=== PATIENT | female | born 1980 | race Caucasian/White ===

== ENCOUNTER → 2021-04-18 09:34 | Outpatient (CLI) | payer BC, SELFPAY ==
[2021-04-18 10:26] LABS: Basophils # 0.1 K/mm3 (0-0.2); Basophils % 0.7 % (0.1-2.0); Eosinophils # 0.3 K/mm3 (0.0-0.4); Hematocrit 42.3 % (37.0-47.0); Hemoglobin 14.1 g/dL (12.2-16.2); Lymphocytes # 2.8 K/mm3 (0.7-4.5); Lymphocytes % 20.2 % (10-50); Mean Corpuscular HGB Conc 33.4 g/dL (31.8-35.4); Mean Corpuscular Hemoglobin 30.3 pg (27.0-31.2); Mean Corpuscular Volume 90.8 fl (81-99); Mean Platelet Volume 7.5 fl (7.4-10.4); Monocytes # 0.6 K/mm3 (0.1-1.0); Monocytes % 4.2 % (1.7-9.3); Neutrophils # 10.1 K/mm3 (1.8-7.8); Neutrophils % 72.9 % (37.0-80.0); Platelet Count 339 K/mm3 (142-424); Red Blood Count 4.65 M/mm3 (4.20-5.40); Red Cell Distribution Width 13.2 % (11.5-17.5); White Blood Count 13.9 K/mm3 (4.8-10.8)
== END ==
PROVIDERS: PCP Family Medicine; Visit Provider Nurse Practitioner
DX: Z20.822 Contact with and (suspected) exposure to COVID-19 (principal)
CPT/HCPCS: 36415; 85025; C9803; U0003; U0005

== ENCOUNTER → 2021-05-01 11:38 | Outpatient (CLI) | payer BC, SELFPAY ==
[2021-05-01 13:14] LABS: Coronavirus 19 IgG Antibody Negative (Negative); Coronavirus 19 IgM Antibody Negative (Negative)
== END ==
PROVIDERS: PCP Family Medicine; Visit Provider Nurse Practitioner
DX: Z01.84 Encounter for antibody response examination (principal)
CPT/HCPCS: 36415; 86328

== ENCOUNTER → 2021-07-15 12:17 | Outpatient (CLI) | payer BC, SELFPAY ==
--- NOTE | 2021-07-15 12:24 | XR_ITS ---
FINAL REPORT TECHNIQUE: Single view chest CLINICAL HISTORY: 14+ days out from positive covid test. increased soa and coughing. FINDINGS: A single view of the chest was obtained. The heart and mediastinum are within normal limits. There are multifocal bilateral pulmonary opacities consistent with bilateral pneumonia. There is no pneumothorax. Osseous structures are unremarkable. IMPRESSION: Findings consistent with bilateral pneumonia, possibly viral pneumonia. Reviewed, Interpreted and Dictated by Ayaz Spencer III, MD Transcribed by Yulia Dykes Authenticated by Ayaz Spencer III, MD on 07/15/2021 01:54:10 PM [facility]
[2021-07-15 12:53] LABS: Basophils # 0.4 K/mm3 (0-0.2); Basophils % 3.4 % (0.1-2.0); Eosinophils % 0.1 % (0.1-12.0); Hematocrit 44.3 % (37.0-47.0); Hemoglobin 14.9 g/dL (12.2-16.2); Lymphocytes # 0.8 K/mm3 (0.7-4.5); Lymphocytes % 6.7 % (10-50); Mean Corpuscular HGB Conc 33.6 g/dL (31.8-35.4); Mean Corpuscular Hemoglobin 30.8 pg (27.0-31.2); Mean Corpuscular Volume 91.7 fl (81-99); Mean Platelet Volume 7.9 fl (7.4-10.4); Monocytes # 0.4 K/mm3 (0.1-1.0); Monocytes % 3.1 % (1.7-9.3); Neutrophils # 10.9 K/mm3 (1.8-7.8); Platelet Count 284 K/mm3 (142-424); Red Blood Count 4.83 M/mm3 (4.20-5.40); Red Cell Distribution Width 12.9 % (11.5-17.5); White Blood Count 12.1 K/mm3 (4.8-10.8)
[2021-07-15 13:11] LABS: MANUAL DIFFERENTIAL MANUAL DIFFERENTIAL (MANUAL DIFF)
[2021-07-15 15:08] LABS: Anisocytosis 1+; Lymphocytes % 10 % (10-50); Monocytes % 5 % (2-9); Neutrophils % 85 % (42-76); Platelet Estimate Normal; Total Cells Counted 100
== END ==
PROVIDERS: PCP Family Medicine; Visit Provider Nurse Practitioner
DX: U09.9 Post COVID-19 condition, unspecified (principal); R06.02 Shortness of breath; R05.9 Cough, unspecified
CPT/HCPCS: 36415; 71045; 85007; 85025

== ENCOUNTER → 2021-08-08 10:59 | Outpatient (CLI) | payer BC, SELFPAY ==
--- NOTE | 2021-08-08 11:12 | XR_ITS ---
FINAL REPORT CLINICAL HISTORY: prior covid, continued symptoms COMPARISON: 07/15/2021 FINDINGS: SINGLE VIEW CHEST The heart is normal in size. The mediastinum is unremarkable. The lungs are clear. There is no pneumothorax. IMPRESSION: No acute cardiopulmonary process. Reviewed, Interpreted and Dictated by Ayaz Spencer III, MD Transcribed by Brittany Bedolla Authenticated by Ayaz Spencer III, MD on 08/08/2021 12:45:29 PM [facility]
--- NOTE | 2021-08-08 11:23 | ECG_ITS ---
APPROVED REPORT Exam: Resting ECG HR:94 bpm ECG Measurements Heart Rate 94 AXES MD 156 P 45 QRSd 84 QRS -31 QT 338 T 38 QTc 390 Conclusion SINUS RHYTHM LEFT AXIS DEVIATION [QRS AXIS < -30] PATTERN CONSISTENT WITH PULMONARY DISEASE ABNORMAL ECG UNCONFIRMED REPORT Electronically signed by : [place] Poe MD 08/09/2021 16:02:38
== END ==
PROVIDERS: PCP Nurse Practitioner; Visit Provider Nurse Practitioner
DX: R00.0 Tachycardia, unspecified (principal); J12.82 Pneumonia due to coronavirus disease 2019
CPT/HCPCS: 71045; 93005

== ENCOUNTER → 2021-10-20 16:09 | Outpatient (CLI) | payer BC, SELFPAY ==
[2021-10-20 16:19] LABS: Adenovirus F 40/41, stool Not Detected (NotDetected); Astrovirus Not Detected (NotDetected); Campylobacter Not Detected (NotDetected); Clostridium Difficile A/B, PCR Not Detected (NotDetected); Cryptosporidium Not Detected (NotDetected); Cyclospora Cayetanesis Not Detected (NotDetected); Entamoeba histolytica Not Detected (NotDetected); Enteroaggregative E coli Not Detected (NotDetected); Enteropathogenic E coli Not Detected (NotDetected); Enterotoxigenic E coli Not Detected (NotDetected); Giardia lamblia Not Detected (NotDetected); Norovirus Not Detected (NotDetected); Plesimonas Shigalloides, PCR Not Detected (NotDetected); Rotavirus A Not Detected (NotDetected); Salmonella, PCR Not Detected (NotDetected); Sapovirus Not Detected (NotDetected); Shiga-like toxin E coli Not Detected (NotDetected); Shigella Enterovasive E coli Not Detected (NotDetected); Vibrio Cholerae Not Detected (NotDetected); Vibrio, PCR Not Detected (NotDetected); Yersinia Entercolitica, PCR Not Detected (NotDetected)
[2021-10-23 09:54] LABS: H. pylori Stool Ag, EIA Negative (Negative)
== END ==
PROVIDERS: Visit Provider Family Medicine
DX: R19.7 Diarrhea, unspecified (principal)
CPT/HCPCS: 87338; 87507

== ENCOUNTER → 2021-11-07 18:19 | Outpatient (CLI) | payer BC, SELFPAY ==
[2021-11-07 18:48] LABS: Adenovirus F 40/41, stool Not Detected (NotDetected); Astrovirus Not Detected (NotDetected); Campylobacter Not Detected (NotDetected); Cryptosporidium Not Detected (NotDetected); Cyclospora Cayetanesis Not Detected (NotDetected); Entamoeba histolytica Not Detected (NotDetected); Enteroaggregative E coli Not Detected (NotDetected); Enteropathogenic E coli Not Detected (NotDetected); Enterotoxigenic E coli Not Detected (NotDetected); Giardia lamblia Not Detected (NotDetected); Norovirus Not Detected (NotDetected); Plesimonas Shigalloides, PCR Not Detected (NotDetected); Rotavirus A Not Detected (NotDetected); Salmonella, PCR Not Detected (NotDetected); Sapovirus Not Detected (NotDetected); Shiga-like toxin E coli Not Detected (NotDetected); Shigella Enterovasive E coli Not Detected (NotDetected); Vibrio Cholerae Not Detected (NotDetected); Vibrio, PCR Not Detected (NotDetected); Yersinia Entercolitica, PCR Not Detected (NotDetected)
[2021-11-07 21:03] LABS: Clostridium Difficile A/B, PCR Detected (NotDetected)
== END ==
PROVIDERS: PCP Nurse Practitioner; Visit Provider Nurse Practitioner
DX: R19.7 Diarrhea, unspecified (principal); A04.72 Enterocolitis due to Clostridium difficile, not specified as recurrent
CPT/HCPCS: 87045; 87507

== ENCOUNTER → 2021-12-02 16:00 | Outpatient (CLI) | payer BC, SELFPAY ==
[2021-12-02 16:07] LABS: Adenovirus F 40/41, stool Not Detected (NotDetected); Astrovirus Not Detected (NotDetected); Campylobacter Not Detected (NotDetected); Cryptosporidium Not Detected (NotDetected); Cyclospora Cayetanesis Not Detected (NotDetected); Entamoeba histolytica Not Detected (NotDetected); Enteroaggregative E coli Not Detected (NotDetected); Enteropathogenic E coli Not Detected (NotDetected); Enterotoxigenic E coli Not Detected (NotDetected); Giardia lamblia Not Detected (NotDetected); Norovirus Not Detected (NotDetected); Plesimonas Shigalloides, PCR Not Detected (NotDetected); Rotavirus A Not Detected (NotDetected); Salmonella, PCR Not Detected (NotDetected); Sapovirus Not Detected (NotDetected); Shiga-like toxin E coli Not Detected (NotDetected); Shigella Enterovasive E coli Not Detected (NotDetected); Vibrio Cholerae Not Detected (NotDetected); Vibrio, PCR Not Detected (NotDetected); Yersinia Entercolitica, PCR Not Detected (NotDetected)
[2021-12-03 10:04] LABS: Clostridium Difficile A/B, PCR Detected (NotDetected)
== END ==
PROVIDERS: PCP Family Medicine; Visit Provider Nurse Practitioner
DX: A04.72 Enterocolitis due to Clostridium difficile, not specified as recurrent (principal)
CPT/HCPCS: 87506

== ENCOUNTER → 2022-05-05 12:05 | Outpatient (CLI) | payer BC, SELFPAY ==
[2022-05-05 19:40] LABS: Adenovirus,PCR Not Detected (NotDetected); Bordetella Pertussis Not Detected (NotDetected); Chlamydophila Pneumoniae, PCR Not Detected (NotDetected); Coronavirus 229E Not Detected (NotDetected); Coronavirus NL63 Not Detected (NotDetected); Coronavirus OC43 Not Detected (NotDetected); Coronovirus HKU1,PCR Not Detected (NotDetected); Human Metapneumovirus Not Detected (NotDetected); Influenza A, PCR Not Detected (NotDetected); Influenza AH1, 2009 Not Detected (NotDetected); Influenza AH1, PCR Not Detected (NotDetected); Influenza AH3,PCR Not Detected (NotDetected); Influenza B, PCR Not Detected (NotDetected); Mycoplasma Pneumoniae, PCR Not Detected (NotDetected); Parainfluenza 1, PCR Not Detected (NotDetected); Parainfluenza 2, PCR Not Detected (NotDetected); Parainfluenza 3, PCR Not Detected (NotDetected); Parainfluenza 4, PCR Not Detected (NotDetected); Respiratory Syncytial Virus Not Detected (NotDetected); Rhinovirus/Enterovirus Not Detected (NotDetected)
[2022-05-05 20:04] LABS: Basophils # 0.1 K/mm3 (0-0.2); Eosinophils # 0.4 K/mm3 (0.0-0.4); Eosinophils % 2.7 % (0.1-12.0); Hematocrit 41.2 % (37.0-47.0); Hemoglobin 13.6 g/dL (12.2-16.2); Lymphocytes # 1.1 K/mm3 (0.7-4.5); Lymphocytes % 8.3 % (10-50); Mean Corpuscular Hemoglobin 30.1 pg (27.0-31.2); Mean Corpuscular Volume 91.3 fl (81-99); Mean Platelet Volume 8.7 fl (7.4-10.4); Monocytes # 0.8 K/mm3 (0.1-1.0); Monocytes % 5.7 % (1.7-9.3); Neutrophils # 11.2 K/mm3 (1.8-7.8); Neutrophils % 82.3 % (37.0-80.0); Platelet Count 304 K/mm3 (142-424); Red Blood Count 4.51 M/mm3 (4.20-5.40); Red Cell Distribution Width 12.7 % (11.5-17.5); White Blood Count 13.6 K/mm3 (4.8-10.8)
[2022-05-06 16:08] LABS: Coronavirus 19, PCR Detected (NotDetected)
== END ==
PROVIDERS: PCP Nurse Practitioner; Visit Provider Nurse Practitioner
DX: J06.9 Acute upper respiratory infection, unspecified (principal); U07.1 COVID-19
CPT/HCPCS: 85025; 87581; 87632; 87798; C9803; U0003; U0005

== ENCOUNTER → 2022-08-22 22:25 | Outpatient (CLI) | payer OTHER, SELFPAY ==
[2022-08-22 18:15] LABS: Basophils # 0.1 K/mm3 (0-0.2); Basophils % 1.1 % (0.1-2.0); Eosinophils # 0.2 K/mm3 (0.0-0.4); Eosinophils % 2.6 % (0.1-12.0); Hematocrit 42.3 % (37.0-47.0); Hemoglobin 14.7 g/dL (12.2-16.2); Lymphocytes # 1.9 K/mm3 (0.7-4.5); Mean Corpuscular HGB Conc 34.8 g/dL (31.8-35.4); Mean Corpuscular Volume 89.1 fl (81-99); Mean Platelet Volume 8.9 fl (7.4-10.4); Monocytes # 0.5 K/mm3 (0.1-1.0); Monocytes % 6.3 % (1.7-9.3); Neutrophils # 4.8 K/mm3 (1.8-7.8); Platelet Count 323 K/mm3 (142-424); Red Blood Count 4.74 M/mm3 (4.20-5.40); Red Cell Distribution Width 12.8 % (11.5-17.5); White Blood Count 7.4 K/mm3 (4.8-10.8)
[2022-08-22 18:47] LABS: Alanine Aminotransferase 25 U/L (12-78); Albumin Level 4.3 g/dl (3.5-5.0); Albumin/Globulin Ratio 1.7 (1.1-1.8); Alkaline Phosphatase 81 U/L (38-126); Anion Gap 11.2 mEq/L (5-15); Aspartate Amino Transferase 29 U/L (14-36); Bilirubin,Total 0.6 mg/dl (0.2-1.3); Blood Urea Nitrogen 13 mg/dl (7-17); Calcium 8.7 mg/dl (8.4-10.2); Carbon Dioxide 25 mmol/L (22.0-30.0); Chloride 105 mmol/L (98-107); Chol/HDL Ratio 6.4 (1-3.5); Cholesterol 212 mg/dl (140-200); Estimated Glomerular Filt Rate 109 ml/min (>60); GFR (African American) 131 ML/MIN (>60); Globulin 2.6 g/dL (1.3-3.2); Glucose 82 mg/dl (74-100); HDL Cholesterol 33 mg/dl (40-60); Potassium 4.2 mmoL/L (3.5-5.1); Sodium 137 mmol/L (136-145); Total Protein,Serum 6.9 g/dl (6.3-8.2); Triglycerides 353 mg/dl (30-150); VLDL Cholesterol 71 mg/dL (0-40)
[2022-08-22 18:51] LABS: Hemoglobin A1C 5.1 % (4.0-6.0)
[2022-08-22 18:59] LABS: Direct LDL Cholesterol 122.97 mg/dL (100-129)
[2022-08-22 19:04] LABS: Microalbumin/Creatinine Ratio 4.4
[2022-08-22 19:05] LABS: 25-OH Vitamin D, Total 34.5 ng/mL (30-100)
[2022-08-22 19:18] LABS: Thyroid Stimulating Hormone 0.65 uIU/mL (0.465-4.68)
[2022-08-22 19:30] LABS: Creatinine,Urine Random 173 mg/dL (Not Estab.)
[2022-08-22 19:38] LABS: Vitamin B12 587 pg/mL (239-931)
== END ==
PROVIDERS: PCP Nurse Practitioner; Visit Provider Nurse Practitioner
DX: E28.2 Polycystic ovarian syndrome (principal); E78.5 Hyperlipidemia, unspecified; I10 Essential (primary) hypertension; Z13.1 Encounter for screening for diabetes mellitus; Z13.29 Encounter for screening for other suspected endocrine disorder; E66.9 Obesity, unspecified; Z68.27 Body mass index [BMI] 27.0-27.9, adult
CPT/HCPCS: 80053; 80061; 82043; 82306; 82570; 82607; 83036; 84443; 85025

== ENCOUNTER → 2022-09-11 18:29 | Outpatient (CLI) | payer OTHER, SELFPAY | PROVIDERS: PCP Nurse Practitioner; Visit Provider Nurse Practitioner | DX: R30.0 Dysuria (principal); B37.9 Candidiasis, unspecified | CPT/HCPCS: 87086; 87088 ==

== ENCOUNTER → 2022-11-14 23:06 | Outpatient (CLI) | payer OTHER, SELFPAY ==
[2022-11-14 17:39] LABS: Basophils # 0.1 K/mm3 (0-0.2); Basophils % 0.8 % (0.1-2.0); Eosinophils # 0.2 K/mm3 (0.0-0.4); Eosinophils % 2.4 % (0.1-12.0); Hematocrit 43.9 % (37.0-47.0); Hemoglobin 14.4 g/dL (12.2-16.2); Lymphocytes % 23.9 % (10-50); Mean Corpuscular HGB Conc 32.8 g/dL (31.8-35.4); Mean Corpuscular Hemoglobin 29.1 pg (27.0-31.2); Mean Corpuscular Volume 88.7 fl (81-99); Monocytes # 0.5 K/mm3 (0.1-1.0); Monocytes % 5.2 % (1.7-9.3); Neutrophils # 5.8 K/mm3 (1.8-7.8); Neutrophils % 67.7 % (37.0-80.0); Platelet Count 345 K/mm3 (142-424); Red Blood Count 4.95 M/mm3 (4.20-5.40); Red Cell Distribution Width 12.8 % (11.5-17.5); White Blood Count 8.6 K/mm3 (4.8-10.8)
[2022-11-14 17:45] LABS: Alanine Aminotransferase 35 U/L (12-78); Albumin Level 4.3 g/dl (3.5-5.0); Albumin/Globulin Ratio 1.6 (1.1-1.8); Alkaline Phosphatase 75 U/L (38-126); Anion Gap 15.6 mEq/L (5-15); Aspartate Amino Transferase 36 U/L (14-36); Bilirubin,Total 0.3 mg/dl (0.2-1.3); Blood Urea Nitrogen 11 mg/dl (7-17); Carbon Dioxide 27 mmol/L (22.0-30.0); Chloride 104 mmol/L (98-107); Chol/HDL Ratio 5.5 (1-3.5); Cholesterol 175 mg/dl (140-200); Estimated Glomerular Filt Rate 91 ml/min (>60); GFR (African American) 110 ML/MIN (>60); Globulin 2.7 g/dL (1.3-3.2); Glucose 89 mg/dl (74-100); HDL Cholesterol 32 mg/dl (40-60); Potassium 4.6 mmoL/L (3.5-5.1); Sodium 142 mmol/L (136-145); Triglycerides 394 mg/dl (30-150); VLDL Cholesterol 79 mg/dL (0-40)
[2022-11-14 17:52] LABS: Hemoglobin A1C 5.1 % (4.0-6.0)
[2022-11-14 17:56] LABS: Direct LDL Cholesterol 79.76 mg/dL (100-129)
[2022-11-14 18:03] LABS: 25-OH Vitamin D, Total 40.1 ng/mL (30-100)
[2022-11-14 18:34] LABS: Vitamin B12 580 pg/mL (239-931)
== END ==
PROVIDERS: PCP Nurse Practitioner; Visit Provider Nurse Practitioner
DX: I10 Essential (primary) hypertension (principal); E28.2 Polycystic ovarian syndrome; E66.9 Obesity, unspecified; E78.5 Hyperlipidemia, unspecified
CPT/HCPCS: 80053; 80061; 82306; 82607; 83036; 85025

== ENCOUNTER → 2023-02-11 23:57 | Outpatient (CLI) | payer OTHER, SELFPAY | PROVIDERS: PCP Nurse Practitioner; Visit Provider Nurse Practitioner | DX: R30.0 Dysuria (principal); B96.29 Other Escherichia coli [E. coli] as the cause of diseases classified elsewhere | CPT/HCPCS: 87086; 87088; 87186 ==

== ENCOUNTER 2024-01-13 10:37 | Outpatient (CLI) | payer OTHER, SELFPAY ==
[2024-01-13 19:09] LABS: Basophils # 0.1 K/mm3 (0-0.2); Basophils % 1.3 % (0.1-2.0); Eosinophils # 0.2 K/mm3 (0.0-0.4); Eosinophils % 2.1 % (0.1-12.0); Hemoglobin 14.1 g/dL (12.2-16.2); Lymphocytes # 2.5 K/mm3 (0.7-4.5); Lymphocytes % 26.7 % (10-50); Mean Corpuscular HGB Conc 34.3 g/dL (31.8-35.4); Mean Corpuscular Hemoglobin 31.1 pg (27.0-31.2); Mean Corpuscular Volume 90.8 fl (81-99); Mean Platelet Volume 8.4 fl (7.4-10.4); Monocytes # 0.5 K/mm3 (0.1-1.0); Neutrophils # 6.2 K/mm3 (1.8-7.8); Platelet Count 326 K/mm3 (142-424); Red Blood Count 4.52 M/mm3 (4.20-5.40); Red Cell Distribution Width 13.3 % (11.5-17.5); White Blood Count 9.5 K/mm3 (4.8-10.8)
[2024-01-13 19:32] LABS: Microalbumin < 6.000 mg/L (0-16.7)
[2024-01-13 19:42] LABS: Creatinine,Urine Random 93 mg/dL (Not Estab.)
[2024-01-13 19:43] LABS: Erythrocyte Sedimentation Rate 21 mm/hr (0-20)
[2024-01-13 19:59] LABS: Alanine Aminotransferase 33 U/L (12-78); Albumin Level 4.2 g/dl (3.5-5.0); Albumin/Globulin Ratio 1.3 (1.1-1.8); Alkaline Phosphatase 77 U/L (38-126); Aspartate Amino Transferase 36 U/L (14-36); Bilirubin,Total 0.7 mg/dl (0.2-1.3); Blood Urea Nitrogen 12 mg/dl (7-17); Calcium 9.1 mg/dl (8.4-10.2); Carbon Dioxide 26 mmol/L (22.0-30.0); Chloride 108 mmol/L (98-107); Chol/HDL Ratio 6.5 (1-3.5); Cholesterol 226 mg/dl (140-200); Estimated Glomerular Filt Rate 77 ml/min (>60); GFR (African American) 93 ML/MIN (>60); Globulin 3.2 g/dL (1.3-3.2); Glucose 89 mg/dl (74-100); HDL Cholesterol 35 mg/dl (40-60); Sodium 141 mmol/L (136-145); Total Protein,Serum 7.4 g/dl (6.3-8.2)
[2024-01-13 20:10] LABS: C-Reactive Protein 2.2 mg/L (0-4); Direct LDL Cholesterol 71.66 mg/dL (100-129)
[2024-01-13 20:20] LABS: 25-OH Vitamin D, Total 53.5 ng/mL (30-100)
[2024-01-13 20:29] LABS: Triglycerides 680 mg/dl (30-150)
[2024-01-13 20:31] LABS: Thyroid Stimulating Hormone 0.63 uIU/mL (0.465-4.68)
[2024-01-13 20:51] LABS: Vitamin B12 1000 pg/mL (239-931)
[2024-01-13 21:03] LABS: Hemoglobin A1C 5.3 % (4.0-6.0)
[2024-01-15 17:43] LABS: Anti-Centromere B Antibodies 0.4 AI (0.0-0.9); Anti-DNA (DS) Ab Qn <1 IU/mL (0-9); Anti-Jo-1 <0.2 AI (0.0-0.9); Anti-Smith Antibody <0.2 AI (0.0-0.9); Antichromatin Antibodies <0.2 AI (0.0-0.9); Antiscleroderma-70 Antibodies 0.2 AI (0.0-0.9); RNP Antibodies <0.2 AI (0.0-0.9); Sjogren's Anti-SS-A <0.2 AI (0.0-0.9); Sjogren's Anti-SS-B <0.2 AI (0.0-0.9)
== END 2024-01-13 23:59 | disposition home or self-care (01) ==
LOC: LAB.DROPOF 01-14 10:37
PROVIDERS: PCP Nurse Practitioner; Visit Provider Nurse Practitioner
DX: I10 Essential (primary) hypertension (principal); E78.5 Hyperlipidemia, unspecified; E66.9 Obesity, unspecified; E28.2 Polycystic ovarian syndrome; R53.83 Other fatigue; Z68.28 Body mass index [BMI] 28.0-28.9, adult
CPT/HCPCS: 80050; 80053; 80061; 82043; 82306; 82570; 82607; 83036; 84443; 85025; 85651; 86140; 86225; 86235

== ENCOUNTER 2024-07-27 14:25 | Outpatient (CLI) | payer OTHER, SELFPAY | END 2024-07-27 23:59 | disposition home or self-care (01) | LOC: LAB.DROPOF 07-28 12:32 | PROVIDERS: PCP Nurse Practitioner; Visit Provider Nurse Practitioner | DX: R30.0 Dysuria (principal) | CPT/HCPCS: 87086 ==

== ENCOUNTER → 2025-01-04 08:49 | Outpatient (CLI) | payer OTHER, SELFPAY ==
--- OUTSIDE RECORDS SUMMARY | 2024-11-21 09:50 | XMS_ITS | Encounter Summary ---
Author Organization [place] [address] Care Team Providers Care Game Developer Name Role Phone Zach Craft MD Primary Care Provider + [phone] Hosea Matos MD Unavailable [phone] Reason for Visit * Physical Therapy (Routine) - Authorized Specialty Diagnoses / Procedures Referred By Rocky ceja Referred To Contact Physical Therapy Diagnoses Urinary incontinence, unspecified type Rabia Pal MD [address] [place] [id number] Phone: tel: fax: [facility] Physical Therapy [place] [address] [address] [facility] [place] [address] Phone: tel: fax: Referral ID Status Reason Start Date Expiration Date V isits Requested Visits Authorized [id number] Authorized 10/05/2024 10/05/2025 1 60 Encounter Details Date Type Department Care Team (Latest Contact Info) Description 11/21/2024 9:50 AM EDT - 11/21/2024 11:59 PM EDT Hospital Encounter [facility] [place] [address] Alisha Delgado, PT Discharge Disposition: Home or Self Care Social History Tobacco Use Types Packs/Day Years Used Date Smoking Tobacco: Never Smokeless Tobacco: Never Alcohol Use Standard Drinks/Week Comments No 0 (1 standard drink = 0.6 oz pur e alcohol) Overall Financial Resource Strain (CARDIA) Answe r Date Recorded How hard is it for you to pa y for the very basics like food, housing, medical care, and heating? Not very hard 07/17/2021 Hunger Vital Sign Answer Date Recorded Within the past 12 months, y ou worried that your food would run out before you got the money to buy more. Never true 07/17/19 22 Within the past 12 months, t he food you bought just didn't last and you didn't have money to get more. Never true 07/17/2021 PRAPARE - Transportation Answer Date Re corded In the past 12 months, has l ack of transportation kept you from medical appointments or from getting medications? No 02/2022 In the past 12 months, has l ack of transportation kept you from meetings, work, or from getting things needed for daily living? No 07/17/2021 Sexually Active Control Partners Comments Yes Other-see comments Male Vasectomy Comments No Sex and Gender Information Value Date Recorded Sex Assigned at Not on file Legal Sex Female 2:54 PM EDT Gender Identity Not on file Sexual Orientation Not on file documented as of this encounter Functional Status * Is the person deaf or does he/she have serious difficulty hearing? Answer Date of Assessment Author No 07/18/2021 12:31 PM Tamia Clifton RN * Is the person blind or does he/she have serious difficulty seeing even when wearing glasses? Answer Date of Assessment Author No 07/18/2021 12:31 PM Tamia Clifton RN * Does this person have serious difficulty walking or climbing stairs? Answer Date of Assessment Author No 07/18/2021 12:31 PM Tamia Clifton RN * Does this person have difficulty dressing or bathing? Answer Date of Assessment Author No 07/18/2021 12:31 PM Tamia Clifton RN * Because of a physical, mental or emotional condition, does this person have difficulty doing errands alone such as visiting a doctor's office or shopping? Answer Date of Assessment Author No 07/18/2021 12:31 PM Tamia Clifton RN documented as of this encounter Mental Status * Because of a physical, mental or emotional condition, does this person have serious difficulty concentrating, remembering or making decisions? Answer Entry Date Author No 07/18/2021 12:31 PM Tamia Clifton RN documented in this encounter Medications at Time of Discharge amLODIPine (NORVASC) 5 mg Oral Tablet Take 1/2 Tablet by mouth nightly. 135 Tablet 1 09/17/2023 ascorbic acid (VITAMIN C ORAL) Take 500 mg by mouth daily. aspirin 81 mg tablet Take 81 mg by mouth daily. bisoprolol (ZEBETA) 5 mg Oral Tablet Take 1/2 Tablet by mouth once daily. 135 Tablet 1 09/17/2023 estradioL (ESTRACE) 0.01 % (0.1 mg/gram) Vagl Cream Place 1 g vaginally three times a week. 42.5 g 2 09/05/2024 finasteride (PROPECIA) 1 mg Oral TabletIndications:C ystic acne,Hirsutism Take 1 Tablet by mouth daily. 30 Tablet 11 05/17/2024 Lactobac no.41/Bifidobact no.7 (PROBIOTIC-10 ORAL) Take by mouth. metFORMIN (GLUCOPHAGE XR) 500 mg Oral ER 24 hr tabletIndications:P COS (polycystic ovarian syndrome) Take 1 tab in AM and 2 tabs in PM with food. 90 Tablet 5 04/04/2024 multivit-mins no.63/iron/folic (M-VIT ORAL) Take by mouth. oseltamivir (TAMIFLU) 75 mg Oral Capsule TAKE 1 CAPSULE BY MOUTH ONCE DAILY FOR 10 DAYS. 08/22/2024 predniSONE (DELTASONE) 10 mg Oral TabletIndications:R ight lateral epicondylitis Take two 10 mg tablets once a day, for 7 days 14 Tablet 10/19/2024 simvastatin (ZOCOR) 40 mg Oral Tablet Take 40 mg by mouth daily. losartan (COZAAR) 50 mg Oral Tablet TAKE ONE TABLET BY MOUTH ONCE DAILY 90 Tablet 1 11/27/2023 5 documented as of this encounter Discharge Disposition Disposition Code Departure Means Destination Home or Self Care documented in this encounter Progress Notes * Provider, Unknown - 11/21/2024 10:02 AM EDT * Alisha Delgado, PT - 11/21/2024 10:00 AM EDT Images from the original note were not included. Physical Therapy Pelvic Floor Evaluation Patient Name: Unique Avalos : 1980 Visit #: 1 Onset Date: 10/05/24-referral MD Diagnosis: Urinary incontinence, unspecified type Restrictions/Precautions: [place] Physician: Kae IBARRA Follow Up: none scheduled Evaluation Date: 11/21/2024 Reassessment Due: 30 days from 11/21/24 Primary Insurance: [employer] CHO[employer] PLUS Insurance Authorization: AMB REFERRAL TO PHYSICAL THERAPY Authorized (10/05/2024-10/05/2025) Visits Requested Visits Authorized Visits Completed Visits Scheduled 1 1 -- 1 Details Referral ID: [id number] Authorization Status Reason: -- Authorization Comments: -- Referred To: -- Referred By: Rabia Pal MD at [facility], [facility] Creation Date: 10/05/2024 Referral Reasons: -- Referral Order: AMB REFERRAL TO PHYSICAL THERAPY Time In/Out: [id number] Timed Treatment Minutes: Therapeutic activities 25 minutes Total Timed Code Treatment Minutes: 25 Untimed Treatment Minutes: PT Eval Total Treatment Minutes: 45 This evaluation to serve as D/C summary if the patient doesn't return for further treatment. Subjective Age: 44 y.o. Had a hysterectomy a couple years ago, started leaking after that, and it's progressed since then Has to wear panty liner daily, tried Always but didn't like how they felt No rhyme or reason with leakage Had CS deliveries Some drops after urinates, sometimes sitting at desk, sometimes with walking Not really prohibiting anything Started doing kegels and never helped Started vaginal estrogen for dryness and UTI like symptoms, symptoms have improved, immediate relief Has your problem been [x] getting worse [] stay the same [] getting better Have you ever had treatment for this problem [] no [x] yes (explain) Urinary frequency Daytime - all the time, I have a small bladder , tried to stretch bladder at a young age Nighttime - [] 0 [x] 1 [] 2 [] 3 [] 4 other: Bowel problems - on metformin Frequency of BM - [] daily [] qod [x] Specify: 2x/day Valsalva to defecate - [] yes [] No [] sometimes [place] Stool chart type: 1[] 2[] 3[] 4[] 5[x] 6[] 7[] Using a squatty potty: [] yes [] no Leakage frequency: Bladder: [] none [x] daily [] other (explain) - denies VALENTÍN or UUI, no rhyme or reason to leakage, will just be sitting and feel leakage, does have post void dribbling after she gets up from urinating, has worsened to the point of having to wear pads Bowel: [x] none [] yes, Frequency: Protection: Type: [] none [] urinary pads [x] menstrual pads [] Depends- panty liner # / day: [x] 1 [] 2 [] 3 [] 4 [] 5 Fluid intake - [x] water - tries to drink 80oz at work, not as much at home [x] soda ( [] regular [x] diet) sprite or coke zero daily [x] coffee ( [x] regular [] decaf) [] additives -1 cup, FF milk, creamer [] tea ( [] regular [] decaf) [] Other (explain) Caffeine use - [x] see above; explain: Hx UTI - [] no [x] yes , was told to cut out caffeine in the past due to UTI's, also did bladder stretch when she was little due to inc'd frequency and UTI's OB History 2 Para 2 Term 1 AB Living 1 SAB IAB Ectopic Multiple Live Births # of Pregnancies:2 # of Deliveries:2 [x] [] Vaginal Pelvic History: Regular menstrual cycles - [] yes [] no (explain) ([] menopause [x] Hysterectomy [] ) UTD on pelvic screening / PAP test: [x] yes [] no Pain: Pain with tampon use - [] yes [] no [x] NA Pain with intercourse - [] yes [x] no [] NA Pain level: denies Patient Goals: to stop leakage Current Bladder treatment (meds): [x] Vaginal estrogen Current Bowel treatment (supplements / meds): [x] probiotic Social/Function: 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, 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, 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, 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 difficile diarrhea COVID-19 long hauler 06/2021 Encounter for blood transfusion 7 years ago with Factor V Leiden mutation dx 2010 Hyperlipidemia Hypertension Past Surgical History: Procedure Laterality Date SECTION x2 CHOLECYSTECTOMY ENDOMETRIAL ABLATION N/A 03/14/2016 DILATION AND CURETTAGE HYSTEROSCOPY WITH MYOSURE ENDOMETRIAL ABLATION WITH NOVASURE ; Surgeon: Terri Thompson MD; Location: ED MAIN OR; Service: Gynecology HYSTERECTOMY 04/16/22 HYSTERECTOMY, TOTAL N/A 04/18/2022 DAVINCI ROBOTIC TOTAL HYSTERECTOMY WITH BILATERAL SALPINGECTOMY; Surgeon: Rabia Pal MD; Location: ED MAIN OR; Service: Robotics HYSTEROSCOPY N/A 03/14/2016 Surgeon: Terri Thompson MD; Location: ED MAIN OR; Service: Gynecology TONSILLECTOMY (Not in a hospital admission) Current Outpatient Medications: amLODIPine (NORVASC) 5 mg Oral Tablet, Take 1/2 Tablet by mouth nightly., Disp: 135 Tablet, Rfl: 1 ascorbic acid (VITAMIN C ORAL), Take 500 mg by mouth daily., Disp: , Rfl: aspirin 81 mg tablet, Take 81 mg by mouth daily. , Disp: , Rfl: bisoprolol (ZEBETA) 5 mg Oral Tablet, Take 1/2 Tablet by mouth once daily., Disp: 135 Tablet, Rfl: 1 estradioL (ESTRACE) 0.01 % (0.1 mg/gram) Vagl Cream, Place 1 g vaginally three times a week., Disp:42.5 g, Rfl: 2 finasteride (PROPECIA) 1 mg Oral Tablet, Take 1 Tablet by mouth daily., Disp: 30 Tablet, Rfl: 11 Lactobac no.41/Bifidobact no.7 (PROBIOTIC-10 ORAL), Take by mouth., Disp: , Rfl: losartan (COZAAR) 50 mg Oral Tablet, TAKE ONE TABLET BY MOUTH ONCE DAILY, Disp: 90 Tablet, Rfl: 1 metFORMIN (GLUCOPHAGE XR) 500 mg Oral ER 24 hr tablet, Take 1 tab in AM and 2 tabs in PM with food., Disp: 90 Tablet, Rfl: 5 multivit-mins no.63/iron/folic (M-VIT ORAL), Take by mouth., Disp: , Rfl: oseltamivir (TAMIFLU) 75 mg Oral Capsule, TAKE 1 CAPSULE BY MOUTH ONCE DAILY FOR 10 DAYS., Disp: , Rfl: predniSONE (DELTASONE) 10 mg Oral Tablet, Take two 10 mg tablets once a day, for 7 days, Disp: 14 Tablet, Rfl: 0 simvastatin (ZOCOR) 40 mg Oral Tablet, Take 40 mg by mouth daily., Disp: , Rfl: No Known Allergies Objective FOTO Eval score 11/21/24 Predicted Score Updated Score Updated Score Updated Score 48 58 Activities walking 6 x 2.sitting 6 x 3.squatting 6 x Observation: Posture: WNL; no significant deviations noted Gait Analysis: within normal limits without assistive device Lumbar Mobility: WNL for rx Mentation: alert, oriented, follows directions appropriately Hx abdominal surgery? [] No [x] Yes-CS x 2, hysterectomy 2021, cholecystectomy Scar Location: multiple lap incisions Scar mobility: some dec'd mobility on 2 lap incisions Diastasis Recti (in finger width): Above: 0 At umbilicus: 0 Below: 0 Neuro: [x] NT Sensation (B) UEs: [] intact Sensation (B) LEs: [] intact Reflexes: Anal: [] present [] absent Cough: [] present [] absent Pelvic Floor Exam Pt was offered a clay pigeon loader during internal exam and declined. External: Skin Condition: [x] intact [] hemorrhoids [] cysts [] swelling [] varicosities [] lesions [] atrophy [] other (explain): Palpation: [x] no tenderness to palpation noted Tenderness to palpation noted at [] superficial transverse perineal ([] Right [] Left [] Bilat) [] ischiocavernosus ([] Right [] Left [] Bilat) [] bulbocavernosus ([] Right [] Left [] Bilat) [] perineum [] other (explain) Tone: [x] normal [] hypotonic [] hypertonic Perineal Body Mobility: Voluntary Contract [x] present [] absent Voluntary Relax [x] present [] absent Involuntary Contract (Cough) [x] present [] absent Involuntary Relax [x] present [] absent Perineal Body Descent: Rest [] Flattened [x] Supported Bear Down Strongly [] Present (Cauda) [x] Absent (=normal / cephalad) Internal: Sensation: [x] intact [] diminished [] absent Palpation: [x] no tenderness to palpation noted [] tenderness / pain to palpation noted at : [] LA ([] Right [] Left [] Bilat) [] ATLA ([] Right [] Left [] Bilat) [] OI ([] Right [] Left [] Bilat) [] post introitus [] other (explain) Vaginal Vault size: [x] WNL [] Increased [] Decreased P E R F E C (TA) T (cough) 5/5 >5 Sec. >5 10 [x] P [] A [] NT [x] P [] A [] NT [x] P [] A [] NT Pelvic Organ Prolapse Grade Anterior/Cystocele [x]0 []1 []2 []3 []4 NT [] Posterior/Rectocele [x]0 []1 []2 []3 []4 NT [] Apical/Vaginal [x]0 []1 []2 []3 []4 NT [] Therapeutic Activity Bladder Diary: [x] patient educated on importance of filling out bladder diary at home, complete with fluid intake, voids, and leakage when applicable. Voiding: [x] patient educated on normal voiding and urination cycle and the physiology of bowel and bladder control muscles and pelvic floor muscles. The patient was educated on bladder dysfunction as well. The patient was also educated on prolapse and its affect on urination. [] Pt instructed on bulge / double void technique after voiding to facilitate PFM elongation and complete bowel / bladder emptying. Dietary: [x] Patient educated on avoiding the 4 Cs and other bladder irritants to reduce bladder irritation and leakage. [x] Patient educated on proper water intake to promote normal bowel / bladder function [] Patient educated on importance of completing water tracker with goal oz water daily Bowel: [] Patient educated on completing daily bowel diary until next session - provided handout. [] Discussed rationale for daily fiber and / or miralax to improve the consistency and frequency ofBMs. [] Reviewed and demonstrated proper positioning for defecation to reduce PFM stress, including use of foot stool / squatty potty. Other: [] Patient instructed to use ample amounts of water based lubricant during intercourse to reduce pain and irritation (sample provided). [] Reviewed strategies to protect the pelvic floor from strain / prolapse. [] Reviewed use of kegel weights for home and provided information to order [] During internal exam, pt was provided with verbal as well as manual cues to facilitate PFM contraction (+/- coordination with cough) and PFM elongation Therapeutic exercise (TE): PF strengthening TE: [] Short-hold (1 sec): 10 Times, 3-5 times per day [] Long-hold (5 sec): 10 Times, 3-5 times per day [] Kegel + cough: 10 times, 3-5 times per day [] Diaphragmatic breathing Patient/Family Instructed on: [x] see handout [] HEP [x] refer to above information Patient's Response to teaching: Verbalized understanding, returned demo Assessment: Impression: Unique Avalos presents with worsening UI since hysterectomy in 2021. Pt denies VALENTÍN or UUI and reports that she will just have leakage at random times. Pt with hx CS x 2 and hysterectomy. Pt with inc'd daytime urinary frequency and nocturia x 1. Pt does report being told that her bladder was small as a child and underwent a bladder stretching procedure. Pt with vaginal dryness and UTI symptoms (with negative cultures) that have significantly improved since starting vaginal estrogen. Pt with good water intake but does drink moderate amount of bladder irritants. Pt with good PFM strength, endurance and coordination. Anticipate that pt will do well with PFPT focusing on improving overall bowel and bladder habits and general education regarding posture, diaphragmatic breathing,pelvic floor/prolapse protection strategies and body mechanics. Goals Rehab potential: [x] good [] fair [] poor [] guarded Short Term Goals: (set for 4 weeks) Update/Status Pt will demo independence with double void techniques in order to improve post void dribbling [x] Unmet [] Progressing [] Met Pt will demo exhale and kegel during all transitional movements in order to manage pressure and reduce leakage with squatting [x] Unmet [] Progressing [] Met Pt will understand the effects of bladder irritants and avoid as able to reduce urinary leakage [x]Unmet [] Progressing [] Met Global Lead Goals: (set for 8 weeks) Update/Status Pt will report at least 50% improvement in overall symptoms resulting in improved quality of life [x] Unmet [] Progressing [] Met Pt will utilize urgency control exercises daily to normalize bladder control and return to normal voiding intervals of every 2-4 hours [x] Unmet [] Progressing [] Met PSFS will improve by at least 2 in one domain representing an increase in function [x] Unmet [] Progressing [] Met Patient will be independent with HEP upon D/C in order to promote long-term health and reduce risk for injury. [x] Unmet [] Progressing [] Met Plan [] Continue per plan of care [] Alter current plan (see comments) [x] Plan of care initiated [] Hold pending MD visit [] Discharge Comment: Patient is recommended to be seen up to 1 time per week for 8 weeks. Treatments may consist of Therapeutic exercise 27873, Neuromuscular re-education 57539, Manual soft tissue and/or joint mobilization 95477, Patient education, Electrical stimulation (unattended) 90708, and Therapeutic activity 08609. Patient present with co-morbidities of incontinence and musculoskeletal conditions and personal factors of Age that may impact patient/family's ability to Work, Play sports, and Attend social activities. During today's evaluation, he/she presented with problem areas in musculoskeletal system, activity limitations, and participation restriction that are impacting functional activities and participation (see objective measures for further detail). Due to indicated course of physical therapy, the patient's presentation is evolving at this time. This patient presented today with moderate complexity. Reference Chart: Co-morbidities & Personal Factors Body system elements Presentation Clinical Decision Making Low Evaluation 0 1-2 Stable / Predictable Low Moderate Evaluation 1-2 3 or more Evolving/ Changing Moderate High Evaluation 3 or more 4 or more Unstable/ Unpredictable High Signature: Alisha Delgado, PT Date: 11/21/2024 documented in this encounter Plan of Treatment Upcoming Encounters Date Type Department Care Team (Late st Contact Info) Description 01/17/2025 8:15 AM EDT [facility] [address] [facility] [address] [place] [address] Shi Small, PT [address] [place], [place] [id number] Scheduled Referrals Name Type Priority Associated Diagnoses Orde r Schedule AMB REFERRAL TO PHYSICAL THERAPY Outpatient Referral Routine Urinary incontinence, unspecified type Ordered: 10/05/2024 documented as of this encounter Visit Diagnoses Not on filedocumented in this encounter Care Teams Game Developer Relationship Specialty Start Date End Date Zach Craft MD [facility] [place] [id number] PCP - General Family Medicine 03/03/16 Hosea Matos MD [address] [place] [address] Physician Otolaryngology 09/30/24 documented as of this encounter
--- OUTSIDE RECORDS SUMMARY | 2024-11-22 10:30 | XMS_ITS | Encounter Summary ---
Author Organization [facility] Address [address] [place] [address] Care Team Providers Care Assistant Quality Manager Name Role Phone Zach Craft MD Primary Care Provider [phone] Hosea Matos MD Unavailable [phone] Reason for Referral * In Office Procedure (Routine) - AFF Authorization Not Needed Specialty Diagnoses / Procedures Referred By Rocky ceja Referred To Contact Orthopedic Surgery Diagnoses Right lateral epicondylitis Right elbow pain Procedures [facility] MEDICATION/PROCEDURE AUTH Barrett Dee DO [address] [place] [address] Phone: tel: fax: [facility] [address] [place] [address] Phone: tel: fax: Referral ID Status Reason Start Date Expiration Date Visits Requested Visits Authorized [id number] AFF Authorization Not Needed 11/22/2024 11/22/2025 1 1 Reason for Visit * Reason Comments Follow-up Encounter Details Date Type Department Care Team (Latest Contact Info) Description 11/22/2024 10:30 AM EDT Office Visit [facility] [address] [place] [address] Barrett Dee DO [address] [place] [address] Right lateral epicondylitis (Primary Dx); Right elbow pain Social History Tobacco Use Types Packs/Day Years [...] Tamia Clifton RN documented in this encounter Progress Notes * Barrett Dee DO - 11/22/2024 10:30 AM EDT Images from the original note were not included. PATIENT NAME: Unique Avalos DATE OF (age): 44 y.o. PHYSICIAN: Barrett Dee DO Date of Visit: 11/22/2024 Chief Complaint: Chief Complaint Patient presents with ??? Right Elbow - Follow-up History: This is a 44 y.o. year old female with a PMH significant for hypertension, hyperlipidemia,factor V Leiden deficiency and PCOS who presents for follow-up evaluation of right elbow pain. Symptom onset several months. She denies any direct fall or trauma but reported a popping sensation whenshe was throwing a ball. The patient was last seen on 10/25/2024. A counterforce brace and home exercises were recommended. Today she reports minimal to no improvement. She reports persistent right lateral elbow pain, pain with simple activities such as lifting up a coffee cup. She denies any new falls or trauma. She presents to discuss additional diagnostic treatment options. Past Medical History: Reviewed registration form and medical history. Past Surgical History: Reviewed registration form and medical history. Family History: Reviewed registration form and medical history. Social History: Reviewed registration form and medical history. Review of Systems: Reviewed registration form and medical history. Physical Examination: VITAL SIGNS: Height Weight GENERAL: Well appearing. No acute distress. Appears stated age. ORIENTATION: Awake. Alert. Oriented. HEENT: Normocephalic, atraumatic. Extraoccular muscles intact. Nares patent. RESPIRATORY: Non-labored breathing. Speaks comfortably in full sentences. CARDIAC: Warm and well-perfused. No obvious peripheral edema. SKIN: No obvious lesions in exposed areas. NEUROLOGIC: Light touch sensation is intact and symmetric in the bilateral upper and lower extremities. Strength is 5/5 in the bilateral upper and lower extremities. No ankle clonus is noted bilaterally. PSYCHIATRIC: Normal mood and affect. Cooperative. GAIT: Grossly normal. LEFT ELBOW: Full range of motion with flexion, extension, pronation and supination. No warmth, erythema, edema or effusion. No pain with palpation of the lateral epicondyle, medial epicondyle, olecranon or radial head. Cozen sign is negative. No pain with resisted finger extension. No pain overlying the UCL. Tinel's negative at the ulnar nerve. Strength is 5/5. Sensation is intact. RIGHT ELBOW: Full range of motion with flexion, extension, pronation and supination. No warmth, erythema, edema or effusion. No pain with palpation of the medial epicondyle, olecranon or radial head.Cozen sign is positive. Pain with resisted finger extension. No pain overlying the UCL. Tinel's negative at the ulnar nerve. Strength is 5/5. Sensation is intact. Tender to palpation at the common extensor tendon at the lateral epicondyle. ADDITIONAL WORKUP / IMAGING The following imaging and/or labs were personally read by myself and discussed in detail with the patient today. Right elbow x-ray, 3 views, 10/19/2024: Preserved articulation and alignment of the humeral ulnar joint, radiocapitellar joint and proximal radioulnar joint. No obvious acute osseous abnormality is identified. Limited ultrasound evaluation, right elbow, 10/25/2024: The common extensor tendon is visualized, mild loss of the fibular echotexture suggestive of tendinopathy. There is a small area of hypoechogenicity suggestive of a nonretracted intrasubstance tear, no large retracted tear noted. Small hyperechoic area suggestive of small area of intratendinous calcification. ASSESSMENT: Lateral epicondylitis, right-persistent Right elbow common extensor tendinopathy with possible intrasubstance, nonretracted tear PLAN: I discussed the case with the patient in the office today. I discussed treatment options. I did my best to answer all questions. The patient was in agreement with the treatment plan. The patient returns to follow-up her right elbow pain as above. She has made minimal progress in the prior visit. Imaging as above is again reviewed. Ordering an ultrasound-guided percutaneous needle tenotomy with platelet rich plasma injection to the right elbow common extensor tendon at the lateral condyle I discussed risks, benefits and alternative treatment options, the patient expressed understanding and desire to proceed. Continue elbow counterforce brace as needed. Continue home exercises in the prior visit. The patient prefers home exercises as opposed to formal in person physical therapy. Discontinue meloxicam due to lack of clinical improvement. Hold all NSAIDs 2 weeks prior to 8 weeks post procedurally. Tylenol over the counter, as needed, as directed on the bottle, not to exceed 3000 mg per day. Ice 20 minutes on 60 minutes off as needed. In terms of next steps would consider: Advanced imaging right elbow Return to clinic once scheduled for her ultrasound-guided percutaneous needle tenotomy with platelet plasma injection to the right elbow common extensor tendon at the lateral epicondyle or sooner if symptoms worsen. The patient was in agreement with the treatment plan. Barrett Dee DO Sports Medicine Physician, C.A.Q Board Certified Physical Medicine and Rehabilitation Registered Musculoskeletal Sonography (RMSK) Certified [facility] Please note that this travel specialist was created using voice recognition software. Any errors are unintentional and may be due to voice recognition travel specialist. documented in this encounter Plan of Treatment Upcoming Encounters Date Type Department Care Team (Late st Contact Info) Description 01/17/2025 8:15 AM EDT Office Visit [facility] [address] [place] [address] Shi Small, PT [address] [place], [place] [id number] documented as of this encounter Visit Diagnoses Diagnosis Right lateral epicondylitis- Primary Lateral epicondylitis of elbow Right elbow pain Pain in joint, upper arm documented in this encounter Orders Nursing Count Last Ordered Date First Orde red Date [facility] MEDICATION/PROCEDURE AUTH 11/06 documented in this encounter Care Teams Assistant Quality Manager Relationship Specialty Start Date End Date Zach Craft MD [address] [place] [address] PCP - General Family Medicine 03/03/16 Hosea Matos MD [address] [place] [address] Physician Otolaryngology 09/30/24 documented as of this encounter
--- OUTSIDE RECORDS SUMMARY | 2024-11-30 07:53 | XMS_ITS | Encounter Summary ---
Author Organization [place] [address] Care Team Providers Care Tool Filer Name Role Phone Zach Craft MD Primary Care Provider [phone] Twyla Matos MD Unavailable [phone] Reason for Visit * Physical Therapy (Routine) - Authorized Specialty Diagnoses / Procedures Referred By Rocky ceja Referred To Contact Physical Therapy Diagnoses Urinary incontinence, unspecified type Rabia Pal MD [address] [place] [address] Phone: tel: fax: [facility] Physical Therapy [place] [address] [facility] [place] [address] Phone: tel: fax: Referral ID Status Reason Start Date Expiration Date V isits Requested Visits Authorized [id number] Authorized 10/05/2024 10/05/2025 1 60 Encounter Details Date Type Department Care Team (Latest Contact Info) Description 11/30/2024 7:53 AM EDT - 11/30/2024 11:59 PM EDT Hospital Encounter [facility] [place] [address] Alisha Delgado, PT Discharge Disposition: Home or [...] no.41/Bifidobact no.7 (PROBIOTIC-10 ORAL) Take by mouth. losartan (COZAAR) 50 mg Oral Tablet TAKE ONE TABLET BY MOUTH ONCE DAILY 90 Tablet 1 11/25/2024 metFORMIN (GLUCOPHAGE XR) 500 mg Oral ER [...] Tablet Take 40 mg by mouth daily. documented as of this encounter Discharge Disposition Disposition Code Departure Means Destination Home or Self Care documented in this encounter Progress Notes * Angi Rainey - 11/30/2024 8:31 AM EDT Program_ID:[id number] Access Code: [email or web address] URL: [email or web address] Date: 11-30-2024 Prepared By: Alisha Delgado Program Notes <div>Practice deep breathing for 5-10 minutes per day in different positions.</div><div>
</div><div>DO NOT HOLD YOUR BREATH!</div><div>Make sure you breathe out and tighten abdominal muscles every time you stand up, roll in/out of bed or lift, push or pull something.</div><div>
</div><div><div><span><b>diaphragmatic breathing technique:</b></span> </div><div>breathe in through your nose, belly, sides and back expand</div><div>breathe out through your mouth, belly, sides and back come back to midline
</div><div>keep chest still<span initial; >. </span></div></div> Exercises - Supine Diaphragmatic Breathing - x daily - x weekly - 2 sets - 10 reps - Supine Butterfly Groin Stretch - x daily - x weekly - 2 sets - 10 reps - Seated Diaphragmatic Breathing - x daily - x weekly - 2 sets - 10 reps - Diaphragmatic Breathing to Reduce Intra-abdominal Pressure: Sit to Stand - x daily - x weekly - 2 sets - 10 reps - Mini Squat with Pelvic Floor Contraction - x daily - x weekly - 2 sets - 10 reps - Diaphragmatic Breathing to Reduce Intra-abdominal Pressure: Supine to Sit - x daily - x weekly - 2 sets - 10 reps * Alisha Delgado PT - 11/30/2024 8:00 AM EDT Images from the original note were not included. Physical Therapy Treatment Note Patient Name: Unique Avalos : 1980 Visit #: 2 Onset Date: 10/05/24-referral Diagnosis: Urinary incontinence, unspecified type Restrictions/Precautions: [place] Physician: Kae IBARRA Follow Up: none scheduled Evaluation Date: 11/21/2024 Reassessment Due: 30 days from 11/21/24 Primary Insurance: [facility] CHOICE PLUS Insurance Authorization: AMB REFERRAL TO PHYSICAL THERAPY Authorized (10/05/2024-10/05/2025) Visits Requested Visits Authorized Visits Completed Visits Scheduled 1 60 1 5 Details Referral ID: [id number] Authorization Status Reason: Covered Benefit Authorization Comments: -- Referred To: [facility] Referred By: Rabia Pal MD at [facility], [facility] Creation Date: 10/05/2024 Referral Reasons: -- Referral Order: AMB REFERRAL TO PHYSICAL THERAPY Future Appointments Date Time Provider Department Center 11/30/2024 8:00 AM Alisha Delgado, PT [facility] 12/21/2024 7:45 AM Alisha Delgado, PT [facility] 12/28/2024 8:45 AM Alisha Delgado, PT [facility] 01/04/2025 7:45 AM Alisha Delgado, PT [facility] 01/11/2025 7:45 AM Alisha Delgado, PT [facility] Time In/Out: 0758/[id number] Timed Treatment Minutes: Therapeutic activities 25 minutes Neuro re-education 13 minutes Total Timed Code Treatment Minutes: 38 Untimed Treatment Minutes: None Total Treatment Minutes: 38 Medication Changes: none Pain: 0 Patient Goals: to stop leakage Current Bladder treatment (meds): [x] Vaginal estrogen Current Bowel treatment (supplements / meds): [x] probiotic Subjective Did logs, didn't notice any difference with or without soda Does use sugar free water flavoring, looking into switching to one without artificial sweetner Did one day with just one plain water Had rough night sleeping last night, hot flashes Feels urge more when she gets up walking at work, 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 before she walks to the back Drinks less in general when at home vs work Starts drinking coffee on way to work, gets there at 6:30 and drinks up until lunchtime Objective: FOTO Eval score 11/21/24 Predicted Score Updated Score Updated Score Updated Score 48 58 Activities walking 6 x sitting 6 x squatting 6 x Voiding Diaries DATE 11/28-6/24 Number of days recorded 2 Frequency daytime 12*-10 Frequency nighttime Voiding intervals *120, 60, 115, 48, 47, 155, 40, 51, 69, 185,55 *180, 60, 150, 45, 165, 30, 50, 160, 120 Min Void interval 40-45 Max Void Interval 185-165 Leaks (VALENTÍN, UUI) 3-4, walking, sitting, standing/moving Daily fluid intake: Water 64 oz Coffee-iced 6 oz-sips for >5 hours Coke zero 12 oz padmini Total fluid per day *with soda Treatment Neuro re-ed [x] Diaphragmatic breathing/pressure management [x] Supine [x] Butterfly pose [] Happy baby [x] Sitting [x] Sit to stand [x] Mini squats/ simulate lifting [] Child's pose [] Cat cow [] Bridge [] Hooklying hip add with ball [] Hooklying hip abd with tband [] Sidelying clamshell with tband [] Prone hip extension [x] Quick kegels x 10 Quick kegels to metronome x 10: [] hooklying []sitting [] Standing [] prone (counting out loud) Kegel + cough x5: [] hooklying [] sitting [] standing [] prone Long hold kegel x 30 sec: [] hooklying [] sitting [] standing [] Prone (counting out loud) [] Diaphragmatic breathing + PFM contraction and relaxation: [] Sitting on pool noodle [] Sit to stand [] Mini squat/simulate lifting [] Supine [] Butterfly pose [] Marcie pose [] Cat cow [] bridge [] Hooklying hip add with ball [] Hooklying hip abd with tband [] Sidelying clamshell with tband [] Prone hip extension Hip stretches: [] Supine HS stretch with strap [] Sktc [] Double knee to chest [] Supine piriformis stretch [] Supine lumbar trunk rotation Core: [] Supine TrA contraction [] Supine TrA contraction + B knee ext + neck curl [] bug [] Bird dog HEP Access Code: [email or web address] URL: [email or web address] Date: 11/30/2024 Prepared by: Alisha Delgado Program Notes Practice deep breathing for 5-10 minutes per day in different positions.DO NOT HOLD YOUR BREATH!Make sure you breathe out and tighten abdominal muscles every time you stand up, roll in/out of bed or lift, push or pull something.diaphragmatic breathing technique: breathe in through your nose, belly,sides and back expandbreathe out through your mouth, belly, sides and back come back to midlinekeepchest still. Exercises - Supine Diaphragmatic Breathing - 2 sets - 10 reps - Supine Butterfly Groin Stretch - 2 sets - 10 reps - Seated Diaphragmatic Breathing - 2 sets - 10 reps - Diaphragmatic Breathing to Reduce Intra-abdominal Pressure: Sit to Stand - 2 sets - 10 reps - Mini Squat with Pelvic Floor Contraction - 2 sets - 10 reps - Diaphragmatic Breathing to Reduce Intra-abdominal Pressure: Supine to Sit - 2 sets - 10 reps Therapeutic activities [x] Voiding diary-reviewed logs (see above), will have pt complete 2 more logs for next session [x] Voiding schedule-reviewed normal bladder cycle, voiding goal minimum 60 minutes between voids, will increase in 15-30 min increments, reviewed urge suppression techniques [x] Bladder irritants-reviewed recommendations of reducing bladder irritants and using water sandwich , [x] Patient educated on proper water intake to promote normal bowel / bladder function [] Patient educated on importance of completing water tracker with goal oz water daily [x] Bladder irritants-reviewed recommendations to choose stevia based products but reiterated that these drinks do not count toward total daily water requirement and to continue to drink adequate amount of plain water daily, goal 64oz pure water daily, sip throughout the day, recommend stop coffee by 9:30 [] Reviewed posture and how posture affects pelvic floor [] Reviewed pelvic organ and pelvic floor protection strategies including pressure management, use of pelvic brace/knack with stressful activities, posture, importance of avoiding straining at all times and recommendations to minimize high impact activities [x] Reviewed Diaphragmatic breathing technique and how deep breathing affects our FOREST MANAGEMENT PROFESSOR including sending signals to our parasympathetic nervous system to calm the body down [] Reviewed how to coordinate pelvic floor movement with breathing [x] Reviewed double void techniques [] Educated pt on the results of objective/standardized testing performed and how scores compare toevaluation. Also, discussed the progress towards goals and plan for continued care. Pt verbalized understanding. Manual [] IASTM - massage cupping, body part [] IASTM-rock blade, B piriformis and glutes, sidelying position [] SI MET [] Colonic massage [] Abdominal myofascial release/massage [] Internal soft tissue mobilization - B LA/OI gentle stretch -vaginal griffith [] scar mobilization - cross friction massage perineal scar Modalities [] ES - asymmetrical biphasic current - B PTNS - 200 / 10 freq; x 15 min. Skin intact following treatment. [] ES - Estim IFC mode, 80-150mHz 15 min, Location: abdomen, Position: supine and MH. Skin intact followingtreatment. Assessment Pt with slightly inc'd daytime urinary frequency but does sip on iced coffee throughout the morningand mixes flavor with her water. Pt with ongoing UI without stress or urgency. Pt does report good amount of leakage after having recently urinated. Initiated Diaphragmatic breathing and pt with difficulty keeping chest still. Goals Short Term Goals: (set for 4 weeks) [...] urinary leakage [x]Unmet [] Progressing [] Met Childbirth Educator Goals: (set for 8 weeks) Update/Status Pt [...] [x] Unmet [] Progressing [] Met Plan Patient Requires Follow-up: [x] Yes [] No Plan: [x] Continue per plan of care [] Alter current plan (see comments) [] Plan of care initiated [] Hold pending MD visit [] Discharge Plan for Next Session: Will review Diaphragmatic breathing and incorporate PFM contraction and relaxation in coordination with breathing. Will review voiding logs and continue bladder training. Will continue to educate pt regarding bladder irritants. Electronically signed by: Signed: Alisha Delgado, PT Date: 11/30/2024 documented in this encounter Miscellaneous Notes * Addendum Note - Sanya Santos - 11/30/2024 8:00 AM EDTEncounter addended by: Sanya Santos on: 11/30/2024 3:47 PM Actions taken: Image imported, Clinical Note Signed documented in this encounter Plan of Treatment Upcoming Encounters Date Type Department Care Team (Late st Contact Info) Description 01/17/2025 8:15 AM EDT Office Visit [facility] [address] [address] Shi Small, PT [address] [place] [address] documented as of this encounter Visit Diagnoses Not on filedocumented in this encounter Care Teams Tool Filer Relationship Specialty Start Date End Date Zach Craft MD [facility] [place] [id number] PCP - General Family Medicine 03/03/16 Twyla Matos MD [address] [place] [address] [place] [id number] Physician Otolaryngology 09/30/24 documented as of this encounter
--- OUTSIDE RECORDS SUMMARY | 2024-12-16 14:00 | XMS_ITS | Encounter Summary ---
Author Organization [facility] Address [address] [place] [address] Care Team Providers Care Teacher Of The Handicapped Name Role Phone Zach Craft MD Primary Care Provider + [phone] Hosea Matos MD Unavailable [phone] Reason for Referral * Physical Therapy (Routine) - Authorized Specialty Diagnoses / Procedures Referred By Rocky ceja Referred To Contact Physical Therapy Diagnoses Right lateral epicondylitis Right elbow pain Barrett Dee DO [address] [place] [address] Phone: tel: fax: [facility] [place] [address] [place] [address] Phone: tel: fax: Referral ID Status Reason Start Date Expiration Date V isits Requested Visits Authorized [id number] Authorized 12/16/2024 12/16/2025 1 1 Question Answer Modalities/Procedures As Indicated Therapeutic Exercise As Indicated, Flexibility/Stretching Goals: Decrease pain and swelling, Increase function, Increase strength, Increase ROM Additional instructions: Frequency and duration per therapist discretion, Teach HEP Reason for Visit * Reason Comments Follow-up Encounter Details Date Type Department Care Team (Latest Contact Info) Description 12/16/2024 2:00 PM EDT Office Visit [facility] [place] [address] Barrett Dee, DO [address] [place] [address] Right elbow pain (Primary Dx); Right lateral epicondylitis Social History Tobacco Use Types Packs/Day Years [...] Progress Notes * Barrett Dee DO - 12/16/2024 2:00 PM EDT Images from the original note were not included. PATIENT NAME: Unique Avalos DATE OF (age): 44 y.o. PHYSICIAN: Barrett Dee DO Date of Visit: 12/16/2024 Chief Complaint: Chief Complaint Patient presents with [...] ball. The patient was last seen on 11/22/2024. At that point I ordered an ultrasound- guided percutaneous needle tenotomy platelet plasma injection to the right elbow, extensor tendon. Patient reports similar right elbow pain as her prior visit. She presents to the clinic today for her procedure. Past Medical History: Reviewed registration form and [...] mood and affect. Cooperative. GAIT: Grossly normal. RIGHT ELBOW: Tender to palpation of the common extensor tendon at the lateral [...] suggestive of small area of intratendinous calcification. IN OFFICE PROCEDURE: Ultrasound-Guided Percutaneous Needle Tenotomy with Platelet-Rich Plasma Injection Procedure Note Indication: Lateral epicondylopathy, chronic, Right Site: Common extensor tendon at the lateral epicondyle Side: Right Injectant: 5 mL 1% lidocaine, 4 mL platelet-rich plasma PRP Kit Used: Arthrex ACP A discussion with the patient explaining risks and benefits, including bleeding, infection, worsening of the pain, damage to the area being injected, weakness, allergic reaction to medications, vascular injection, and nerve damage, was had. I discussed the possibility of infection that could require surgical intervention. The patient's questions about the procedure were answered. After discussionof the risks and benefits of the procedure, the patient decided to proceed with the procedure. I discussed the possibility of injury to neurovascular structures including but not limited to the posterior interosseous nerve. The area was scanned to avoid neurovascular structures prior to the procedure. The patient expresses understanding of this concept and expressed his desire to proceed. Time out was performed. Using sterile technique, 15 ml of venous whole blood was aspirated. The blood was centrifuged usingsterile technique to isolate 4 ml of platelet-rich plasma. Using musculoskeletal ultrasound guidance, the common extensor tendon of the elbow was identified in long axis. Next, the injection site was identified and cleaned with povidone iodine swabs x6 whichwas allowed to dry. Next, ethyl chloride was used to anesthetize the skin. Next, a 22-gauge 2.5-inch needle was inserted using in-plane ultrasound guidance from a distal to proximal approach and the trajectory site was anesthetized with the lidocaine. The area just superficial to the common extensor tendon was anesthetized. After appropriate anesthesia had been provided, percutaneous needle tenotomy procedure with 12 fenestrations was performed. Next, the needle was left in place and, using a st erile syringe change technique, utilizing aseptic technique to maintain a sterile field at all times, the syringe was changed to the platelet-rich plasma syringe. The common extensor tendon was then injected with the platelet-rich plasma. The needle was removed. The area was again cleaned with alcohol preps x6 and a sterile bandage was placed. The patient tolerated the procedure well and there were no complications. Digital imaging was savedfor the medical record. Post procedure physical exam: NEUROLOGIC: Light touch sensation is intact and symmetric in the bilateral hands in the median, ulnar and radial nerve distributions. STRENGTH: 5/5 extensor indices bilaterally. Negative pistol sign bilaterally. ASSESSMENT: Lateral epicondylitis, right-persistent Right elbow common extensor tendinopathy with possible intrasubstance, nonretracted tear PLAN: I discussed the case with the patient in the office today. I discussed treatment options. I did my best to answer all questions. The patient was in agreement with the treatment plan. The patient returns follow-up right elbow pain as above. Imaging as above is again reviewed. Ultrasound-guided percutaneous needle tenotomy with platelet rich plasma injection to the right elbow common extensor tendon at the lateral condyle I discussed risks, benefits and alternative treatment options, the patient expressed understanding and desire to proceed. In terms of immobilization: Long wrist brace for the next 2 weeks In 2 weeks okay to utilize counterforce brace that she tolerates. Relative rest for the next 2 weeks. New physical therapy prescribed to start in 2 weeks time. Hold NSAIDs for 8 weeks from today's procedure today. Tylenol over the counter, as needed, as directed on the bottle, not to exceed 3000 mg per day. Ice 20 minutes on 60 minutes off as needed. In terms of next steps would consider: Advanced imaging right elbow Return to clinic in 4 weeks or sooner if symptoms worsen. The patient was in agreement with the treatment plan. DME Summary Normal Orders This Visit [place] WHO WRIST EXTENSION CONTROL NON MOLDED [[id number] [facility]] Order #: [id number] This patient has been prescribed a Titan Wrist Brace which is designed to provide immobilization and support of the right wrist and forearm following an injury, fracture and/or surgery. The patient prescribed to wear this splint for all ADLs following an injury or surgery to prevent further damage to the injured or surgically repaired site. Patient is to wear the brace as prescribed until next patient visit. Verbal and written instructions for the use and application of this item were given. Patient was instructed that should the brace result in increased pain, decreased sensation, increased swelling or an overall worsening of their medical condition, to please contact our office immediately. Barrett Dee DO Sports Medicine Physician, C.A.Q Board Certified Physical Medicine and Rehabilitation Registered Musculoskeletal Sonography (RMSK) Certified [facility] Please note that this nurse examiner was created using voice recognition software. Any errors are unintentional and may be due to voice recognition nurse examiner. documented in this encounter Plan of Treatment Upcoming Encounters Date Type Department Care Team (Late st Contact Info) Description 01/17/2025 8:15 AM EDT Office Visit [facility] [address] [facility] [address] [place] [address] [phone] Shi Small, PT [address] [place] [address] Scheduled Orders Name Type Priority Associated Diagnoses Orde r Schedule NJ TENOTOMY ELBOW LATERAL/MEDIAL PERCUTANEOUS NJ Charge Routine Right lateral epicondylitis Ordered: 12/16/2024 NJ WHO WRIST EXTENSION CONTROL NON MOLDED NJ Charge Routine Right lateral epicondylitis Right elbow pain Ordered: 12/16/2024 Scheduled Referrals Name Type Priority Associated Diagnoses Orde r Schedule AMB REFERRAL TO PHYSICAL THERAPY Outpatient Referral Routine Right lateral epicondylitis Right elbow pain Ordered: 12/16/2024 documented as of this encounter Visit Diagnoses Diagnosis Right elbow pain- Primary Pain in joint, upper arm Right lateral epicondylitis Lateral epicondylitis of elbow documented in this encounter Orders Charge Count Last Ordered Date First Orde red Date CHG US GUIDANCE NEEDLE PLACEMENT IMG S&I 1 12/16/2024 NJ COLLECTION VENOUS BLOOD VENIPUNCTURE 1 0 12/16/2024 documented in this encounter Care Teams Teacher Of The Handicapped Relationship Specialty Start Date End Date Zach Craft MD [address] [place] [address] [place] [id number] PCP - General Family Medicine 03/03/16 Hosea Matos MD [address] [place] [id number] Physician Otolaryngology 09/30/24 documented as of this encounter
--- OUTSIDE RECORDS SUMMARY | 2024-12-21 07:37 | XMS_ITS | Encounter Summary ---
Author Organization [place] [address] Care Team Providers Care Pathology Laboratory Aide Name Role Phone Zach Craft MD Primary Care Provider + [phone] Twyla Matos MD Unavailable [phone] Reason for Visit * Physical Therapy (Routine) - Authorized Specialty Diagnoses / Procedures Referred By Rocky ceja Referred To Contact Physical Therapy Diagnoses Urinary incontinence, unspecified type Rabia Pal MD [address] [place] [phone] Phone: tel: fax: [facility] [place] [address] [facility] [place] [address] Phone: tel: fax: Referral ID Status Reason Start Date Expiration Date V isits Requested Visits Authorized [id number] Authorized 10/05/2024 10/05/2025 1 60 Encounter Details Date Type Department Care Team (Latest Contact Info) Description 12/21/2024 7:37 AM EDT - 12/21/2024 11:59 PM EDT Hospital Encounter [facility] [place] [address] Alisha Delgado, PT Discharge Disposition: Home or [...] encounter Progress Notes * Angi Rainey - 12/21/2024 8:33 AM EDT Program_ID:[id number] Access Code: [email or web address] URL: [email or web address]/ Date: 12-21-2024 Prepared By: Alisha Delgado Program Notes <div>Practice deep breathing with pelvic floor movement for 5-10 minutes per day in different positions.</div><div>
</div><div>DO NOT HOLD YOUR BREATH!</div><div>Make sure you breathe out and kegel every time you<span> stand up, roll in/out of bed or lift, push or pull something.</span></div><div>
</div><div>breathe in, belly out, relax and lengthen pelvic floor:<div> melt like butter into towel roll</div><div> open vaginalike a flower </div><div>
<div>breathe out, belly in, squeeze and lift pelvic floor off towel roll, aka perform a kegel</div></div><div> &a mp;nbsp; close flower </div></div> Exercises - Seated Pelvic Floor Muscles Isometrics on Towel Roll - x daily - x weekly - 2 sets - 10 reps - Supported Butterfly Stretch with Pelvic Floor Relaxation - x daily - x weekly - 2 sets - 10 reps * Provider, Unknown - 12/21/2024 8:22 AM EDT * Alisha Delgado PT - 12/21/2024 7:45 AM EDT Images from the original note were not included. Physical Therapy Treatment Note/Progress note 11/21/24-12/21/24/Reassessment Patient Name: Unique Avalos : 1980 Visit #: 3 Onset Date: 10/05/24-referral Diagnosis: Urinary incontinence, unspecified type Restrictions/Precautions: [place] Physician: Kae IBARRA Follow Up: none scheduled Evaluation Date: 11/21/2024 Reassessment Due: 30 days from 12/21/24 Primary Insurance: [employer] CHOICE PLUS Insurance Authorization: AMB REFERRAL TO PHYSICAL THERAPY Authorized (10/05/2024-10/05/2025) Visits Requested Visits Authorized Visits Completed Visits Scheduled 1 60 2 3 Details Referral ID: [id number] Authorization Status Reason: Covered Benefit Authorization Comments: -- Referred To: [facility] Referred By: Rabia Pal MD at [facility], [facility] Creation Date: 10/05/2024 Referral Reasons: -- Referral Order: AMB REFERRAL TO PHYSICAL THERAPY Future Appointments Date Time Provider Department Center 01/04/2025 7:45 AM Alisha Delgado, PT [facility] Physical [facility] 01/10/2025 2:15 PM Barrett Dee, DO [facility] 01/11/2025 7:45 AM Alisha Delgado, PT [facility] Physical [facility] Time In/Out: 0745/0835 Timed Treatment Minutes: Therapeutic activities 20 minutes Manual therapy techniques 10 minutes Neuro re-education 20 minutes Total Timed Code Treatment Minutes: 50 Untimed Treatment Minutes: None Total Treatment Minutes: 50 Medication Changes: none Pain:B elbow pain, not rated, R elbow (doint PRP therapy), now L elbow bad Patient Goals: to stop leakage Current Bladder treatment (meds): [x] Vaginal estrogen Current Bowel treatment (supplements / meds): [x] probiotic Subjective Maybe a little better Not bad with goal, was at about an hour, couple times went a little earlier due to having long commute to work Trying to be more aware of how often she's going Does go less at home but knows she drinks less Liner doesn't seem as bad, could also be because she's not going to the bathroom as often, has leakage mostly after she goes to the bathroom Denies VALENTÍN, mostly leakage after she urinates, will give it another good push, not very much Having trouble stopping coffee at 930, goes until after 10 but is stopping before lunch, getting in64oz water PCP wants her to do a sleep apnea test Objective: FOHERMILA Eval score 11/21/24 Predicted Score Updated Score 12/21/24 Updated Score Updated Score 48 58 58 Activities walking 6 x 10 sitting 6 x 10 squatting 6 x 10 Voiding Diaries DATE 11/28-11/2912/14/24-12/15/24 Number of days recorded 2 2 Frequency daytime 12*-10 12-11 Frequency nighttime Voiding intervals *120, 60, 115, 48, 47, 155, 40, 51, 69, 185,55 *180, 60, 150, 45, 165, 30, 50, 160, 120 Goal-1 hour 135, 50, 115, 60, 75, 105, 90, 80, 70, 120, 90 *180, 115, 80, 75, 90, 85, 53, 32, 160, 120 Min Void interval 40-45 50-32 Max Void Interval 185-165 Leaks (VALENTÍN, UUI) 3-4, walking, sitting, standing/moving 3-3 Daily fluid intake: Water 64 oz 65-68 Coffee-iced 6 oz-sips for >5 hours 12-18 Coke zero 12 oz padmini Total fluid per day *with soda Treatment Neuro re-ed [] Diaphragmatic breathing/pressure management [] Supine [] Butterfly pose [] Happy baby [] Sitting [] Sit to stand [] Mini squats/ simulate lifting [] Child's pose [] Cat cow [] Bridge [] Hooklying hip add with ball [] Hooklying hip abd with tband [] Sidelying clamshell with tband [] Prone hip extension [] Quick kegels x 10 Quick kegels to metronome x 10: [] hooklying []sitting [] Standing [] prone (counting out loud) Kegel + cough x5: [] hooklying [] sitting [] standing [] prone Long hold kegel x 30 sec: [] hooklying [] sitting [] standing [] Prone (counting out loud) [x] Diaphragmatic breathing + PFM contraction and relaxation: [x] Sitting on pool noodle [x] Sit to stand [x] Mini squat/simulate lifting [] Supine [x] Butterfly pose [] Marcie pose [] Cat [...] bug [] Bird dog HEP Access Code: [email or web address] URL: [email or web address]/ Date: 12/21/2024 Prepared by: Alisha Delgado Program Notes Practice deep breathing with pelvic floor movement for 5-10 minutes per day in different positions.DO NOT HOLD YOUR BREATH!Make sure you breathe out and kegel every time you stand up, roll in/out of bed or lift, push or pull something.breathe in, belly out, relax and lengthen pelvic floor: melt like butter into towel roll open vagina like a flower breathe out, belly in, squeeze and lift pelvicfloor off towel roll, aka perform a kegel close flower Exercises - Seated Pelvic Floor Muscles Isometrics on Towel Roll - 2 sets - 10 reps - Supported Butterfly Stretch with Pelvic Floor Relaxation - 2 sets - 10 reps Therapeutic activities [x] Voiding diary-reviewed logs (see above), will have pt complete 2 more logs for next session [x] Voiding schedule-reviewed normal bladder cycle, voiding goal minimum 75 minutes between voids, will increase in 15-30 min increments, reviewed urge suppression techniques , will have pt track reason she doesn't meet 75 min goal [] Bladder irritants-reviewed recommendations of reducing bladder irritants and using water sandwich , [] Patient educated on proper water intake to promote normal bowel / bladder function [] Patient educated on importance of completing water tracker with goal oz water daily [] Bladder irritants-reviewed recommendations to choose stevia based [...] and recommendations to minimize high impact activities [] Reviewed Diaphragmatic breathing technique and how deep breathing affects our [employer] CUTTER including sending signals to our parasympathetic nervous system to calm the body down [x] Reviewed how to coordinate pelvic floor movement with breathing [] Reviewed double void techniques [x] Educated pt on the results of objective/standardized testing performed and how scores compare to evaluation. Also, discussed the progress towards goals and plan for continued care. Pt verbalized understanding. Manual [] IASTM - massage cupping, body part [x] IASTM-rock blade, B piriformis and glutes, sidelying [...] and MH. Skin intact followingtreatment. Assessment Pt has been seen for PFPT for 3 visits from 11/21/24-12/21/24 for TE, TA, manual therapy and neuro re-ed. Pt has met 0/3 STG's and 2/4 LTG's. Pt independent with Diaphragmatic breathing. Initiated PFM in coordination with breathing but pt with difficulty feeling PFM relaxation. Pt with slowly improving daytime voiding schedule but had some difficulty meeting 60 minute minimal voiding interval goal.Pt with good increase in daily water intake and trying to stop drinking coffee prior to lunch. Pt still with significant post void dribbling. Goals Short Term Goals: (set for 4 weeks) Update/Status Pt will demo independence with double void techniques in order to improve post void dribbling [] Unmet [x] Progressing [] Met Pt will demo exhale and kegel during all transitional movements in order to manage pressure and reduce leakage with squatting [x] Unmet [] Progressing [] Met Pt will understand the effects of bladder irritants and avoid as able to reduce urinary leakage [] Unmet [x] Progressing [] Met [employer]er Goals: (set for 8 weeks) Update/Status Pt will report at least 50% improvement in overall symptoms resulting in improved quality of life [] Unmet [x] Progressing [] Met Pt will utilize urgency control exercises daily to normalize bladder control and return to normal voiding intervals of every 2-4 hours [] Unmet [x] Progressing [] Met PSFS will improve by at least 2 in one domain representing an increase in function [] Unmet [] Progressing [x] Met Patient will be independent with HEP upon D/C in order to promote long-term health and reduce risk for injury. [] Unmet [] Progressing [x] Met Plan Patient Requires Follow-up: [x] Yes [] No Plan: [x] Continue per plan of care [] Alter current plan (see comments) [] Plan of care initiated [] Hold pending MD visit [] Discharge Patient will be seen bi-weekly for at least 4 more visits Treatments to consist of Therapeutic exercise 37169, Neuromuscular re-education 55189, Manual soft tissue and/or joint mobilization 53896, Electrical stimulation (unattended) 41695, and Therapeutic activity 63740. Prefers bi-weekly due to work schedule, also starting elbow therapy Plan for Next Session: Pt would benefit from biofeedback to improve coordination and to assist with achieving full PFM contraction, relaxation and lengthening. Will review voiding logs and continue bladder training. Electronically signed by: Signed: Alisha Delgado PT Date: 12/21/2024 documented in this encounter Miscellaneous Notes * Addendum Note - Sanya Santos - 12/21/2024 7:45 AM EDTEncounter addended by: Sanya Santos on: 12/21/2024 5:50 PM Actions taken: Image imported, Clinical Note Signed documented in this encounter Plan of Treatment Upcoming Encounters Date Type Department Care Team (Late st Contact Info) Description 01/17/2025 8:15 AM EDT Office Visit [facility] [address] [place] [address] Shi Small, PT [address] [place] [address] documented as of this encounter Visit Diagnoses Not on filedocumented in this encounter Care Teams Pathology Laboratory Aide Relationship Specialty Start Date End Date Zach Craft MD [facility] [place] [id number] PCP - General Family Medicine 03/03/16 Twyla Matos MD [address] [address] Physician Otolaryngology 09/30/24 documented as of this encounter
--- OUTSIDE RECORDS SUMMARY | 2025-01-09 12:30 | XMS_ITS | Encounter Summary ---
Author Organization [facility] Address [address] [place] [address] Care Team Providers Care Tile And Marble Installer Name Role Phone Zach Craft MD Primary Care Provider [phone] Hosea Matos MD Unavailable [phone] Reason for Visit * Physical Therapy (Routine) - Authorization Not Needed Specialty Diagnoses / Procedures Referred By Rocky ceja Referred To Contact Physical Therapy Diagnoses Pain in right elbow Dee, Barrett M, DO [address] [place] [address] Phone: tel: fax: [facility] [address] [place] [address] Phone: tel: fax: Referral ID Status Reason Start Date Expiration Date Visits Requested Visits Authorized [id number] Authorization Not Needed 01/09/2025 06/07/2025 1 57 Encounter Details Date Type Department Care Team (Latest Contact Info) Description 01/09/2025 12:30 PM EDT Office Visit [facility] [address] [place] [address] Shi Small, PT [address] [place] [address] Right lateral epicondylitis (Primary Dx) Social History Tobacco Use Types Packs/Day Years [...] documented in this encounter Progress Notes * Sih Small, PT - 01/09/2025 12:30 PM EDT Images from the original note were not included. Physical Therapy Evaluation 01/09/2025 Unique Avalos : 1980 Referring Provider: Barrett Dee DO Next MD visit: 01/10/25 Encounter Diagnosis Name Primary? Right lateral epicondylitis Yes Surgery Date: NA Onset date: months ago Contraindications/Precautions: universal Visit: Time In: 12:28 pm Time Out: 1:20 pm Subjective: Unique Avalos is a 45 y.o. female referred by Barrett Dee DO to outpatient Physical Therapy with a primary diagnosis of: Encounter Diagnosis Name Primary? Right lateral epicondylitis Yes History of Injury/Mechanism of Inury: Pt notes that she used a toy to throw the ball for her dog and felt a snap in the right elbow. Pain progressed to limit function and she therefore consulted [facility]. She was referred to Dr Dee and an ultrasound was performed and this indicated a tear of the common wrist extensor. She received a PRP injection in the right arm on November 22. She complied touse of the wrist brace for the first two weeks and then discontinued use per MD order. She notes that this has provided little relief of symptom. She is also experiencing similar symptoms on the leftside. She notes that at this point she is in constant pain and there is little relief with oral medications or topical creams. She plans to discuss the left arm with Dr Dee at her follow up this week. She has been referred to PT and presents today for evaluation and initiation of treatment. Functional Deficits Since Injury: ADL, IADL, household chore, work, exercise, sleep Diagnostic Tests: X-rays & US Right elbow x-ray, 3 views, 10/19/2024: Preserved [...] area suggestive of small area of intratendinous calcification Relevant Past Medical/Surgical History: see pt chart Current medications and allergies were reviewed with the patient. 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 Patient stated goals: Reduce pain in the elbows Pain at highest: 8/10 Pain at lowest: 6/10 Location: lateral elbow bilat Description: Pain is described as sharp, aching, and throbbing. What Increases Pain?: sleeping, twisting door handle, vacuuming, curling hair, lifting pots or pans, pouring water What Decreases Pain?: ice, voltaren cream, tylenol Objective Posture : Mild rounded shoulder bilaterally Joint Mobility: Palpation: Moderate TTP noted R lateral epicondyle and common wrist extensor tendon/muscle belly+ Llateral epicondyle Gait: Normal arm swing noted bilat Sensation: Intact bilat UE Flexibility: Functional Mobility Screening: Other: Elbow Date Date Date Date PROM Left Right Left Right Elbow Flexion Elbow Extension Supination Pronation Wrist Flexion Wrist Extension Date 01/09/25 Date 01/09/25 Date Date AROM Left Right Left Right Elbow Flexion 144 139 Elbow Extension hyper 4 lacking 1 Supination 87 85 Pronation 86 86 Wrist Flexion 64 68 Wrist Extension 66 65 Date 01/09/25 Date 01/09/25 Date Date Strength Left Right Left Right Elbow Flexion 4+/5 4+/5 Elbow Extension 4+/5 4/5 Supination 4+/5* 4/5* Pronation 4+/5 4+/5 Wrist Flexion 4+/5 4+/5 Wrist Extension 4+/5 4/5* Component Lab Tech 18# 20# Special Tests: None Functional Assessment: 02/03/2023 9:00 AM 01/09/2025 11:04 AM Rehab Outcomes UEFS Score 55 22 UEFS Maximal Function Score 68.75 27.5 Patient-reported Treatment right lateral epicondylitis Treatment Date 01/09/25 Date Date Date UBE >>> wrist extensor str 20' x 3 supination str 20 x 3 table bicep str 20 x 3 AROM wrist flex/ext x 20 AROM sup/pro x 20 MANUAL STM common wrist extensor + CFM extensor tendon x 8' Modalities Measurements Charges 52' 1 E, 1 TE, 1 M HEP ID: [id number] Treatment today included: Timed Units: Therapeutic exercise: 15 minutes Manual therapy: 8 minutes Total Time for Timed Treatments: 27 minutes Untimed Units: PT Eval Low Patient's Tolerance of Evaluation and/or Treatment: Good Response to HEP instruction/patient education: The patient verbalized understanding and demonstrated independence with home exercise program. Impression: Patient presents with signs and symptoms consistent with Encounter Diagnosis Name Primary? Right lateral epicondylitis Yes . Impairments (physical, cognitive and/or psychosocial): decreased mobility, impaired body mechanics,weakness, and pain/tenderness Performance Deficits: functional mobility, household tasks, work/education, sleeping/rest, and recreational activities Based on the functional impairments as stated and activity limitations above, Unique presents as a good candidate for skilled intervention by a licensed therapist. Prognosis for Unique based on the above objective findings is good . Goals Short-Term Goals set for 3 weeks. Pt independent HEP to promote improved ROM, strength and function. Pt demo improved elbow ROM WFL to promote improved ability to perform self-care, household chore and work related activities without limitation. Long-Term Goals set for 6 weeks. Pt to report decreased pain </= 0-2/10 with activity to promote return to previous level of activity. Pt able to sleep > 6 hours consecutively without disruptions from elbow pain to promote overall health. Pt demo increased gross strength in the bilat UE >/= 4+/5 to promote ability to push, pull and lift loads without difficulty. Pt to report UEFS >/= 70/80 to promote demo improved overall function. Plan Patient will be seen 1-2 times per week for 6 weeks. Treatment to include therapeutic exercise, neuromuscular reeducation, manual therapy, therapeutic activity, vasopneumatic pump, electrical stimulation, and dry needling. Signature: Shi Small PT Date: 01/09/2025 [place] License: [id number] documented in this encounter Plan of Treatment Upcoming Encounters Date Type Department Care Team (Late st Contact Info) Description 01/17/2025 8:15 AM EDT [facility] [address] [facility] [address] [place] [address] Shi Small, PT [address] [place], [place] [id number] documented as of this encounter Visit Diagnoses Diagnosis Right lateral epicondylitis- Primary Lateral epicondylitis of elbow documented in this encounter Care Teams Tile And Marble Installer Relationship Specialty Start Date End Date Zach Craft MD [address] [place] [address] PCP - General Family Medicine 03/03/16 Hosea Matos MD [address] [place] [address] [place] [address] Physician Otolaryngology 09/30/24 documented as of this encounter
--- OUTSIDE RECORDS SUMMARY | 2025-01-10 14:15 | XMS_ITS | Encounter Summary ---
Author Organization [facility] Address [address] [place] [address] Care Team Providers Care Operations Professional Name Role Phone Zach Craft MD Primary Care Provider [phone] Hosea Matos MD Unavailable [phone] Reason for Referral * Physical Therapy (Routine) - Pending Review Specialty Diagnoses / Procedures Referred By Rocky ceja Referred To Contact Physical Therapy Diagnoses Left elbow pain Right elbow pain Right lateral epicondylitis Epicondylitis, lateral, left Barrett Dee DO [address] [place] [address] Phone: tel: fax: Referral ID Status Reason Start Date Expiration Date V isits Requested Visits Authorized [id number] Pending Review 01/10/2025 01/10/2026 1 1 Question Answer Modalities/Procedures As Indicated Therapeutic Exercise As Indicated, Flexibility/Stretching Goals: Decrease pain and swelling, Increase function, Increase strength, Increase ROM Additional instructions: Frequency and duration per therapist discretion, Teach HEP Reason for Visit * Reason Comments Pain Encounter Details Date Type Department Care Team (Late st Contact Info) Description 01/10/2025 2:15 PM EDT Office Visit [place] [address] Barrett Dee DO [address] [place] [address] Left elbow pain (Primary Dx); Right elbow pain; Right lateral epicondylitis; Epicondylitis, lateral, left Social History Tobacco Use Types Packs/Day Years Used Date Smoking Tobacco: Never Smokeless Tobacco: Never Tobacco Cessation:Counseling Given: Not Answered Alcohol Use Standard Drinks/Week Comments No 0 [...] on file documented as of this encounter Last Filed Vital Signs Vital Sign Reading Time Taken Comments Blood Pressure - - Pulse - - Temperature - - Respiratory Rate - - Oxygen Saturation - - Inhaled Oxygen Concentration - - Weight 78.9 kg (174 lb) 01/10/2025 2:13 PM EDT Height 167.6 cm (5' 6 ) 01/10/2025 2:13 PM EDT Body Mass Index 28.08 01/10/2025 2:13 PM EDT documented in this encounter Functional Status * Is the [...] Progress Notes * Barrett Dee DO - 01/10/2025 2:15 PM EDT Images from the original note were not included. PATIENT NAME: Unique Avalos DATE OF (age): 45 y.o. PHYSICIAN: Barrett Dee DO Date of Visit: 01/10/2025 Chief Complaint: Chief Complaint Patient presents with ??? Left Elbow - Pain History: This is a 45 y.o. year old female with a PMH significant for hypertension, hyperlipidemia,factor V Leiden deficiency and PCOS who presents for follow-up evaluation of right elbow pain. Symptom onset several months. She denies any direct fall or trauma but reported a popping sensation whenshe was throwing a ball. The patient was last seen on 12/16/2024. At that time performed ultrasound-guided percutaneous needle tenotomy with platelet plasma injection to the right elbow common extensor tendon at the lateral epicondyle. Today she reports minimal improvement of her right elbow. She denies side effects after her tenotomy procedure. She reports persistent right lateral pain, worse first thing in the morning, wakes her up sometimes at nighttime. She reports a new issue today which is left elbow pain. She reports left lateral elbow pain that has developed over the past month or so. No known fall or trauma. No fevers, chills or constitutional symptoms. Patient presents to discuss additional diagnostic and treatment options. Prior treatments: Ultrasound-guided percutaneous needle tenotomy with platelet rich plasma injection, right elbow common extensor tendon at the lateral epicondyle, 12/06/2024, minimal improvement at present, no side effects Past Medical History: Reviewed registration form and medical history. Past Surgical History: Reviewed registration form and medical history. Family History: Reviewed registration form and medical history. Social History: Reviewed registration form and medical history. Review of Systems: Reviewed registration form and medical history. Physical Examination: VITAL SIGNS: Height Height: 5' 6 (167.6 cm) Weight Weight: 174 lb (78.9 kg) GENERAL: Well appearing. No acute distress. Appears [...] of the medial epicondyle, olecranon or radial head. Cozen sign is positive. Pain with resisted finger extension. No pain overlying the UCL. Tinel's negative at the ulnar nerve. Strength is 5/5. Sensation is intact. Tender ovation of the common extensortendon at the lateral epicondyle. RIGHT ELBOW: Full range of motion with flexion, extension, pronation and supination. No warmth, erythema, edema or effusion. No pain with palpation of the medial epicondyle, olecranon or radial head.Cozen sign is positive. Pain with resisted finger extension. No pain overlying the UCL. Tinel's negative at the ulnar nerve. Strength is 5/5. Sensation is intact. Tender ovation of the common extensor tendon at the lateral epicondyle. The injection site is not visible. ADDITIONAL WORKUP / IMAGING The following imaging [...] suggestive of small area of intratendinous calcification. Left elbow x-ray, 3 views, 01/10/2025: Preserved articulation and alignment of the humeral ulnar joint, radiocapitellar joint and proximal radioulnar joint. No obvious acute osseous abnormality is identified. Close attention is paid to the lateral epicondyle, no obvious acute abnormalities are noted. 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 I discussed treatment options. I did my best to answer all questions. The patient was in agreement with the treatment plan. The patient returns to follow-up for right elbow pain as above, has made minimal progress at present. She is developing similar symptoms in her left elbow. Imaging as above is again reviewed. In terms of immobilization: Bilateral elbow counterforce braces is much as possible. A new left elbow counterforce brace was provided today for stability, support, relative rest and topromote healing. Recommend trial of nighttime wrist braces as well Continue home exercises and physical therapy. Adding the left elbow to her physical therapy prescription. Ordering inflammatory lab test including ESR, CRP, RF, TANIKA, anti-CCP and HLA-B27. Hold NSAIDs for 4 more weeks. Tylenol over the counter, as needed, as directed on the bottle, not to exceed 3000 mg per day. Ice 20 minutes on 60 minutes off as needed. In terms of next steps would consider: Advanced imaging right elbow Return to clinic after the above lab testing is been obtained or sooner if symptoms worsen. The patient was in agreement with the treatment plan. DME Summary Normal Orders This Visit AL BELT STRAP SLEEV GRMNT COVER [[id number] [facility]] Order #: [id number] This patient is prescribed a Band-It which is a counter-force brace designed to provide focused compression and relieve pain caused by medial or lateral epicondylitis. Patient prescribed to wear thisbrace during ADLs so as not to cause further damage to the injury site. Patient is to wear the brace [...] (RMSK) Certified [facility] Please note that this transportation agent was created using voice recognition software. Any errors are unintentional and may be due to voice recognition transportation agent. documented in this encounter Plan of Treatment Upcoming Encounters Date Type Department Care Team (Late st Contact Info) Description 01/17/2025 8:15 AM EDT Office Visit [facility] [address] [facility] [address] [place] [address] Shi Small, PT [address] [place] [address] Scheduled Orders Name Type Priority Associated Diagnoses Orde r Schedule C-REACTIVE PROTEIN Lab Routine Left elbow pain Right elbow pain Right lateral epicondylitis Epicondylitis, lateral, left 1 Occurrences starting 01/10/2025 until 01/10/2026 ANTINUCLEAR ANTIBODIES (TANIKA) SCREEN BY RENATA W/ REFLEX TO IFA Lab Routine Left elbow pain Right elbow pain Right lateral epicondylitis Epicondylitis, lateral, left 1 Occurrences starting 01/10/2025 until 01/10/2026 SEDIMENTATION RATE AUTOMATED Lab Routine Left elbow pain Right elbow pain Right lateral epicondylitis Epicondylitis, lateral, left 1 Occurrences starting 01/10/2025 until 01/10/2026 RHEUMATOID FACTOR QUANTITATIVE Lab Routine Left elbow pain Right elbow pain Right lateral epicondylitis Epicondylitis, lateral, left 1 Occurrences starting 01/10/2025 until 01/10/2026 CYCLIC CITRULLINATED PEPTIDE ANTIBODY, IGG Lab Routine Left elbow pain Right elbow pain Right lateral epicondylitis Epicondylitis, lateral, left 1 Occurrences starting 01/10/2025 until 01/10/2026 AL BELT STRAP SLEEV GRMNT COVER AL Charge Routine Left elbow pain Right elbow pain Right lateral epicondylitis Epicondylitis, lateral, left Ordered: 01/10/2025 HLA-B27 ANTIGEN-REF LAB Lab Routine Left elbow pain Right elbow pain Right lateral epicondylitis Epicondylitis, lateral, left 1 Occurrences starting 01/10/2025 until 01/10/2026 Scheduled Referrals Name Type Priority Associated Diagnoses Orde r Schedule AMB REFERRAL TO PHYSICAL THERAPY Outpatient Referral Routine Left elbow pain Right elbow pain Right lateral epicondylitis Epicondylitis, lateral, left Ordered: 01/10/2025 documented as of this encounter Results * XR ELBOW LEFT AP LATERAL AND OBLIQUES (01/10/2025 2:28 PM EDT) Narrative Lauren Pearce - 01/10/2025 2:28 PM EDT Please see physician's note from office encounter for x-ray imaging result Barrett Dee DO IMG DIAGNOSTIC IMAGING ORDERA BLES Final Result documented in this encounter Visit Diagnoses Diagnosis Left elbow pain- Primary Pain in joint, upper arm Right elbow pain Pain in joint, upper arm Right lateral epicondylitis Lateral epicondylitis of elbow Epicondylitis, lateral, left Left elbow pain Pain in joint, upper arm documented in this encounter Care Teams Operations Professional Relationship Specialty Start Date End Date Zach Craft MD [address] [place] [address] [place] [address] PCP - General Family Medicine 03/03/16 Hosea Matos MD [address] [place] [address] Physician Otolaryngology 09/30/24 documented as of this encounter
--- OUTSIDE RECORDS SUMMARY | 2025-01-10 14:30 | XMS_ITS | Encounter Summary ---
Author Organization [facility] Address [address] [place] [address] Care Team Providers Care Office Inspector Name Role Phone Zach Craft MD Primary Care Provider [phone] Hosea Matos MD Unavailable [phone] Encounter Details Date Type Department Care Team (Latest Contact Info) Description 01/10/2025 2:30 PM EDT [facility] [place] [address] [place] [address] Barrett Dee, DO [address] [place] [address] Left elbow pain Social History Tobacco Use Types [...] Tamia Clifton RN documented in this encounter Plan of Treatment Upcoming Encounters Date Type Department Care Team (Late st Contact Info) Description 01/17/2025 8:15 AM EDT Office Visit [facility] [address] [place] [address] Shi Small, PT [address] [place] [address] documented as of this encounter Procedures Procedure Name Priority Date/Time Associated Diagnosis Comments XR ELBOW LEFT AP LATERAL AND OBLIQUES Routine 01/10/2025 2:28 PM EDT Left elbow pain documented in this encounter Results * XR ELBOW LEFT AP LATERAL AND OBLIQUES (01/10/2025 2:28 PM EDT) Narrative Lauren Pearce - 01/10/2025 2:28 PM EDT Please see physician's note from office encounter for x-ray imaging result Barrett Dee DO IMG DIAGNOSTIC IMAGING ORDERA BLES Final Result documented in this encounter Visit Diagnoses Diagnosis Left elbow pain Pain in joint, upper arm documented in this encounter Care Teams Office Inspector Relationship Specialty Start Date End Date Zach Craft MD [address] [place] [address] [place] [address] PCP - General Family Medicine 03/03/16 Hosea Matos MD [address] [place] [address] Physician Otolaryngology 09/30/24 documented as of this encounter
--- OUTSIDE RECORDS SUMMARY | 2025-01-11 08:54 | XMS_ITS | Clinical Summary ---
Author Organization [facility] Address [address] [place] [phone] Phone Care Team Providers Care Hack Driver Name Role Phone Unavailable Unavailable Conditions or Problems No information available. Medications No information available. Medications Administered No information available. Allergies, Adverse Reactions, Alerts No information available. Results No information available. Plan of Care No information available. Procedures No information available. Vital Signs No information available. Immunizations No information available. Advance Directives No information available.
--- OUTSIDE RECORDS SUMMARY | 2025-01-11 08:55 | XMS_ITS | Encounter Summary ---
Author Organization [place] [address] Care Team Providers Care Hand Thermal Cutter Name Role Phone Zach Craft MD Primary Care Provider [phone] Hosea Matos MD Unavailable [phone] Encounter Details Date Type Department Care Team (Late st Contact Info) Description 10/17/2024 Orders Only [facility] Physical Therapy [place] [address] [place] [id number] Dagmar Vang, PT Social History Tobacco Use Types Packs/Day Years [...] AM EDT Office Visit [facility] [address] [place] [address] Shi Small, PT [address] [place] [address] documented as of this encounter Visit Diagnoses Not on filedocumented in this encounter Care Teams Hand Thermal Cutter Relationship Specialty Start Date End Date Zach Craft MD [address] [place] [address] [place] [id number] PCP - General Family Medicine 03/03/16 Hosea Matos MD [address] [place] [address] Physician Otolaryngology 09/30/24 documented as of this encounter
--- OUTSIDE RECORDS SUMMARY | 2025-01-11 08:55 | XMS_ITS | Clinical Summary ---
Author Organization [facility] Address [facility] [place] [address] Care Team Providers Care Guard Rail Installer Name Role Phone Unavailable Primary Care Provider Unavailabl e Social History Tobacco Use Types Packs/Day Years Used Date Smoking Tobacco: Never Assessed Comments Unknown Sex and Gender Information Value Date Recorded Sex Assigned at Not on file Legal Sex Female 7:19 PM EDT Gender Identity Not on file Sexual Orientation Not on file Plan of Treatment Health Maintenance Due Date Last Done Comments DTap,Tdap,and Td (1 - Tdap) 1989 Pap Screening 1999 Mammogram Screening 2018 Colonoscopy 2023 Influenza Vaccine (#1) 2025 RSV Vaccine (60+ or ) (1 - 1-dose 75+ series) 2053 HPV Aged Out No longer eligi ble based on patient's age to complete this topic Meningococcal conjugate skyla nt 4 (MCV4) Aged Out No longer eligible b ased on patient's age to complete this topic Pneumococcal 0-49 Aged Out No longer eligible based on patient's age to complete this topic RSV Immunization (<20 months) Aged Out No longer eligible based on patient's age to complete this topic
--- OUTSIDE RECORDS SUMMARY | 2025-01-11 08:55 | XMS_ITS | Encounter Summary ---
Author Organization [place] [address] Care Team Providers Care Pipe Fitter Supervisor Name Role Phone Zach Craft MD Primary Care Provider [phone] Hosea Matos MD Unavailable [phone] Encounter Details Date Type Department Care Team (Late st Contact Info) Description 11/17/2024 Orders Only [facility] [place] [address] [place] [address] Alisha Delgado, PT Social History Tobacco Use Types Packs/Day [...] of Assessment Author No 07/18/2021 12:31 PM Tmaia Clifton RN * Does this person have [...] AM EDT Office Visit [facility] [address] [place] [address] Shi Small, PT [address] [place] [address] documented as of this encounter Visit Diagnoses Not on filedocumented in this encounter Care Teams Pipe Fitter Supervisor Relationship Specialty Start Date End Date Zach Craft MD [address] [place] [address] [place] [address] PCP - General Family Medicine 03/03/16 Hosea Matos MD [address] [place] [address] Physician Otolaryngology 09/30/24 documented as of this encounter
--- OUTSIDE RECORDS SUMMARY | 2025-01-11 08:55 | XMS_ITS | Patient Health Record ---
Author Organization [facility] Address [address] [place] [address] Care Team Providers Care Burglar Alarm Operator Name Role Phone NO, PCP Primary Care Provider Unavailabl e Allergies No Known Allergies Reason For Referral No Information Medications Medication SIG (Take, Route, Frequency, Duration) Notes Start Date End Date Status Losartan Potassium 25 MG 1 tablet Orally Once a day Active Sudafed 30 MG 2 tablets as needed Orally every 6 hrs Active amLODIPine Besylate 2.5 MG 1 tablet Oral ly Once a day Active Bisoprolol Fumarate 5 MG 1 tablet Orally Once a day Active predniSONE 5 MG 6 tab(s),5 tab(s),4 tab(s),3 tab(s),2 tab(s),1 tab(s) orally once a day; Duration: 6 days 07/15/2023 Active Simvastatin 40 MG 2 tablets in the eric gloria Orally Once a day Active metFORMIN HCl ER 750 MG 1 tablet with ev ening meal Orally Once a day Active Social History Tobacco Use: Social History Observation Description Date Details (start date - stop date) Never Smoker NA - NA Sex Assigned At : Social History Observation Description Sex Assigned At Female Tobacco Use Question Answer Notes Are you a Never smoker Problems Problem Type SNOMED Code ICD Code Onset Dates Problem Status W/U Status Risk Notes Problem Allergic rhinitis (17679347) Allergic sinusitis (J30.9) Active confirmed Plan Of Treatment No Information Insurance Providers Payer Name Payer Address Payer Phone Subscriber Number Group Number Insured Name Patient Relationship to Insured Coverage Start Date Coverage End Date [employer] [address] [place] [address] [id number] Unique Avalos Self - patient is the insured Medical (General) History Medical History History ICD Code polycystic ovarian syndrome
--- OUTSIDE RECORDS SUMMARY | 2025-01-11 08:55 | XMS_ITS | Encounter Summary ---
Author Organization [facility] Address [address] [place] [address] Care Team Providers Care Community Service Technician Name Role Phone Zach Craft MD Primary Care Provider [phone] Hosea Matos MD Unavailable [phone] Reason for Visit * Reason Onset Date Comments Orders 12/12/2024 PRP Encounter Details Date Type Department Care Team (Late st Contact Info) Description 12/12/2024 [facility] [address] [place] [address] Margret Bernal Ortho Tech Orders (PRP) Social History Tobacco Use Types Packs/Day Years [...] Tamia Clifton RN documented in this encounter Miscellaneous Notes * Telephone Encounter - Margret Bernal Ortho Tech - 12/12/2024 9:53 AM EDT please see message below * Telephone Encounter - Margret Bernal Ortho Tech - 12/12/2024 9:53 AM EDT ----- Message from Alessandra sent at 12/12/2024 9:38 AM EDT ----- Regarding: RE: PRP on for thursday okay to proceed with surgery. ----- Message ----- From: Margret Bernal Ortho Tech Sent: 12/12/2024 7:22 AM EDT To: Shelby Raya MA; [facility] Patient Advocate Pool Subject: PRP on for thursday Patient sent a message that she has a payment for 35 dollars for the PRP. Can someone reach out to her. Her PRP is this Thursday. Thank you. documented in this encounter Plan of Treatment Upcoming Encounters Date Type Department Care Team (Late st Contact Info) Description 01/17/2025 8:15 AM EDT Office Visit [facility] [address] [facility] [address] [place] [address] Shi Small, PT [address] [place], [place] [id number] documented as of this encounter Visit Diagnoses Not on filedocumented in this encounter Care Teams Community Service Technician Relationship Specialty Start Date End Date Zach Craft MD [address] [place] [address] PCP - General Family Medicine 03/03/16 Hosea Matos MD [address] [place] [address] [place] [address] Physician Otolaryngology 09/30/24 documented as of this encounter
--- OUTSIDE RECORDS SUMMARY | 2025-01-11 08:55 | XMS_ITS | Encounter Summary ---
Author Organization [facility] Address [address] [place] [address] Care Team Providers Care Inventory Specialist Manager Name Role Phone Zach Craft MD Primary Care Provider [phone] Hosea Matos MD Unavailable [phone] Encounter Details Date Type Department Care Team (Late st Contact Info) Description 01/10/2025 Plan of Care Documentation [facility] [address] [facility] [address] [place], [place] [id number] Social History Tobacco Use Types Packs/Day Years [...] documented in this encounter Miscellaneous Notes * Therapist Plan of Care - Shi Small, PT - 01/10/2025 8:49 AM EDT Images from the original note were not included. Please sign to acknowledge agreement with this updated plan of care. Physical Therapy Evaluation 01/09/2025 Unique Avalos : [...] allergies were reviewed with the patient. 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 Signature: Shi Small PT Date: 01/09/2025 [place] License: [id number] documented in this encounter Plan of Treatment Upcoming Encounters Date Type Department Care Team (Late st Contact Info) Description 01/17/2025 8:15 AM EDT Office Visit [facility] [address] [facility] [address] [place] [address] Shi Small, PT [address] [place] [address] documented as of this encounter Visit Diagnoses Not on filedocumented in this encounter Care Teams Inventory Specialist Manager Relationship Specialty Start Date End Date Zach Craft MD [address] [place] [address] PCP - General Family Medicine 03/03/16 Hosea Matos MD [address] [address] Physician Otolaryngology 09/30/24 documented as of this encounter
--- OUTSIDE RECORDS SUMMARY | 2025-01-11 08:55 | XMS_ITS | Clinical Summary ---
Author Organization [facility] Address [address] [place] [address] Phone Care Team Providers Care Queen'S Counsel Name Role Phone Zach Craft MD Primary Care Provider [phone] Hosea Matos MD Unavailable [phone] Allergies No known active allergies Medications aspirin 81 mg tablet Take 81 mg by mouth daily. Active Lactobac no.41/Bifidobact no.7 (PROBIOTIC-10 ORAL) Take by mouth. Active multivit-mins no.63/iron/folic (M-VIT ORAL) Take by mouth. Active ascorbic acid (VITAMIN C ORAL) Take 500 mg by mouth daily. Active bisoprolol (ZEBETA) 5 mg Oral Tablet Take 1/2 Tablet by mouth once daily. 135 Tablet 1 4 Active amLODIPine (NORVASC) 5 mg Oral Tablet Take 1/2 Tablet by mouth nightly. 135 Tablet 1 4 Active simvastatin (ZOCOR) 40 mg Oral Tablet Take 40 mg by mouth daily. Active metFORMIN (GLUCOPHAGE XR) 500 mg Oral ER 24 hr tabletIndications: PCOS (polycystic ovarian syndrome) Take 1 tab in AM and 2 tabs in PM with food. 90 Tablet 5 4 Active finasteride (PROPECIA) 1 mg Oral TabletIndications: Cystic acne,Hirsutism Take 1 Tablet by mouth daily. 30 Tablet 11 4 Active oseltamivir (TAMIFLU) 75 mg Oral Capsule TAKE 1 CAPSULE BY MOUTH ONCE DAILY FOR 10 DAYS. 5 Active estradioL (ESTRACE) 0.01 % (0.1 mg/gram) Vagl Cream Place 1 g vaginally three times a week. 42.5 g 2 5 Active predniSONE (DELTASONE) 10 mg Oral TabletIndications: Right lateral epicondylitis Take two 10 mg tablets once a day, for 7 days 14 Tablet 5 Active losartan (COZAAR) 50 mg Oral Tablet TAKE ONE TABLET BY MOUTH ONCE DAILY 90 Tablet 1 5 Active Active Problems Problem Noted Date Diagnosed Date Right lateral epicondylitis 01/06/2025 Acute pain of right shoulder 02/03/2023 Impingement syndrome of right shoulder 3 Clostridium difficile colitis 12/11/2021 Acute respiratory failure with hypoxia 2 Pneumonia due to COVID-19 virus 07/16/2021 Mediastinal lymphadenopathy 07/16/2021 Hypoxia 07/15/2021 Primary osteoarthritis of left knee 03/29/2021 Pain in both knees 03/29/2021 PCOS (polycystic ovarian syndrome) 04/25/2015 Assessment & Plan (05/17/2024 12:22 PM EST): Orders: COMPREHENSIVE METABOLIC PANEL; Future Assessment & Plan (04/04/2024 3:07 PM EDT): Orders: DEHYDROEPIANDROSTERONE SULFATE; Future ANDROSTENEDIONE LEVEL -REF LAB; Future TESTOSTERONE LEVEL TOTAL; Future FOLLICLE STIMULATING HORMONE LEVEL; Future LUTEINIZING HORMONE; Future metFORMIN (GLUCOPHAGE XR) 500 mg Oral ER 24 hr tablet; Take 1 tab in AM and 2 tabs in PM with food. spironolactone (ALDACTONE) 50 mg Oral Tablet; Take 1 Tablet by mouth Twice daily diuretic. HPV test positive 04/25/2015 Overview (02/15/2016): 2012 HTN (hypertension) 09/28/2012 Factor 5 Leiden mutation, heterozygous 1 CRI (chronic renal insufficiency) 05/26/2011 Overview (05/26/2011): CRI secondary to renal failure w/ preeclampsia Resolved Problems Problem Noted Date Diagnosed Date Resolved Date Abnormal uterine bleeding (AUB) 10/15/2021 03/11/2023 Overview (10/15/2021): Added automatically from request for surgery [id number] S/P endometrial ablation 04/13/201709/2022 Menorrhagia with irregular cycle 02/15/2016 03/11/2023 Severe dysmenorrhea 02/15/2016 03/11/20 Submucous uterine fibroid 02/15/2016 Encounters Date Type Department Care Team Description 01/10/2025 2:30 PM EDT Ancillary Procedure [facility] [place] [address] [place] [address] Barrett Dee, DO Left elbow pain 01/10/2025 2:15 PM EDT Office Visit [facility] [place] [address] [place] [address] Barrett Dee, DO Left elbow pain (Primary Dx); Right elbow pain; Right lateral epicondylitis; Epicondylitis, lateral, left 01/10/2025 Plan of Care Documentation [facility] [address] [place] [address] 01/09/2025 12:30 PM EDT Office Visit [facility] [address] [place] [address] Shi Small, PT Right lateral epicondylitis (Primary Dx) 12/21/2024 7:37 AM EDT - 12/21/2024 11:59 PM EDT Hospital Encounter [facility] Physical Therapy [place] [address] [place] [address] Alisha Delgado, PT Discharge Disposition: Home or Self Care 12/16/2024 2:00 PM EDT Office Visit [facility] [place] [address] [place] [address] Barrett Dee, DO Right elbow pain (Primary Dx); Right lateral epicondylitis 12/12/2024 Telephone [facility] [place] [phone] Margret Bernal Ortho Tech Orders (PRP) 11/30/2024 7:53 AM EDT - 11/30/2024 11:59 PM EDT Hospital Encounter [facility] Physical Therapy [place] [address] [place] [address] Alisha Delgado, PT Discharge Disposition: Home or Self Care 11/25/2024 Refill [facility] [place] [phone] Leida Harris, DO Medication Refill 11/22/2024 10:30 AM EDT [place] [address] Barrett Dee, DO Right lateral epicondylitis (Primary Dx); Right elbow pain 11/21/2024 9:50 AM EDT - 11/21/2024 11:59 PM EDT Hospital Encounter [facility] Physical Therapy [place] [address] [place] [address] Alisha Delgado, PT Discharge Disposition: Home or Self Care 11/17/2024 Orders Only [facility] Physical Therapy [place] [address] [place] [address] Alisha Delgado, PT 10/25/2024 3:30 PM EDT [place] [address] Barrett Dee, DO Right elbow pain (Primary Dx); Right lateral epicondylitis; Left elbow pain 10/19/2024 10:00 AM EDT - 10/19/2024 11:59 PM EDT Hospital Encounter [facility] Physical Therapy [place] [address] Dagmar Vang, PT Discharge Disposition: Home or Self Care 10/19/2024 8:00 AM EDT [facility] [address] [place] [address] Regan Beltrán MD Right elbow pain 10/19/2024 7:45 AM EDT Office Visit [facility] [address] [place] [address] Regan Beltrán MD Right lateral epicondylitis (Primary Dx); Right elbow pain 10/17/2024 Orders Only [facility] Physical Therapy [place] [address] [place] [address] Dagmar Vang, PT from Last 3 Months Immunizations Immunization Administration Dates Next Due Influenza Seasonal Injectable PF 03/28/2024 Influenza Vaccine Quadrivalent PF 02/10/2013(Def erred: Patient Refused) Tdap 03/28/2024,12/18/2011 Surgical History Surgery Date Site/Laterality Comments CHOLECYSTECTOMY SECTION x2 ENDOMETRIAL ABLATION 03/14/2016 N/A DILATION AND CURETTAGE HYSTEROSCOPY WITH MYOSURE ENDOMETRIAL ABLATION WITH NOVASURE ; Surgeon: Terri Thompson MD; Location: [facility]; Service: Gynecology HYSTEROSCOPY 03/14/2016 N/A N/A Surgeon: Terri Thompson MD; Location: [facility]; Service: Gynecology TONSILLECTOMY HYSTERECTOMY, TOTAL 04/18/2022 N/A DAVINCI ROBOTIC TOTAL HYSTERECTOMY WITH BILATERAL SALPINGECTOMY; Surgeon: Rabia Pal MD; Location: [facility]; Service: Robotics HYSTERECTOMY 04/16/22 Medical History Medical History Date Comments Hypertension Hyperlipidemia Encounter for blood transfusion 7 years ago with Factor V Leiden mutation dx 2010 C. difficile diarrhea COVID-19 giuliana escoto 06/2021 Family History Medical History Relation Name Comments No Known Problems Brother Diabetes Father Dion Esparza Hypertension Father Dion Esparza Stroke Father Dion Esparza No Known Problems Maternal Aunt Diabetes Maternal Grandfather Dyllan heiert Heart Surgery Maternal Grandfather Dyllan heiert Heart Surgery Maternal Grandmother Puja michaeliermarcial Diabetes Maternal Uncle 1 Skip Heart Surgery Maternal Uncle 2 Frederick heiert High Cholesterol Mother Monalisa esparza Hypertension Mother Monalisa esparza No Known Problems Other Breast Cancer Paternal Aunt Aunt Di Heart Surgery Paternal Grandfather [place] isaias Ovarian Cancer Paternal Grandmother Isaias No Known Problems Paternal Uncle No Known Problems Sister Anesth Problems Neg Hx Asthma Neg Hx Defects Neg Hx Bleeding Prob Neg Hx Cancer Neg Hx Chorea Neg Hx Clotting Disorder Neg Hx Cystic Fibrosis Neg Hx Down Syndrome Neg Hx Heart Defect Neg Hx Heart Failure Neg Hx Mental Retardation Neg Hx Migraines Neg Hx Osteoarthritis Neg Hx PKU Neg Hx Rashes/Skin Problems Neg Hx Rheum Arthritis Neg Hx Seizures Neg Hx Sickle Cell Anemia Neg Hx Thyroid Disease Neg Hx Relation Name Status Comments Brother Father Dion Esparza Maternal Aunt Maternal Grandfather Dyllan jones Maternal Grandmother Puja jones Alive Maternal Uncle 1 Skip Maternal Uncle 2 Frederick jones Alive Mother Monalisa esparza Alive Other Paternal Aunt Aunt Di Alive Paternal Grandfather [place] isaias Alive Paternal Grandmother Isaias Paternal Uncle Sister Social History Tobacco Use Types Packs/Day Years [...] on file Sexual Orientation Not on file Obstetrics History Para Term AB IAB SAB Ectopic Multiple Livin g Live Births 2 2 1 1 Date Outcome GA Total Labor Labor/2nd/3rd Weight Sex Type Anes PTL Kelsey A1 A5 Name Clin Para CS-Cl assic al Demise Last Filed Vital Signs Vital Sign Reading Time Taken Comments Blood Pressure 117/81 10/10/2024 3:39 PM EDT Pulse 71 10/10/2024 3:39 PM EDT Temperature 36.2 C (97.2 F) 10/10/2024 3:39 PM EDT Respiratory Rate 15 04/04/2024 8:08 AM EDT Oxygen Saturation 98% 07/21/2023 2:24 PM EST Inhaled Oxygen Concentration - - Weight 78.9 kg (174 lb) 01/10/2025 2:13 PM EDT Height 167.6 cm (5' 6 ) 01/10/2025 2:13 PM EDT Body Mass Index 28.08 01/10/2025 2:13 PM EDT Plan of Treatment Upcoming Encounters Date Type Department Care Team (Late st Contact Info) Description 01/17/2025 8:15 AM EDT Office Visit [facility] [address] [place] [address] Shi Small, PT [address] [place] [address] Health Maintenance Due Date Last Done Comments Annual Wellness Exam 1981 Hepatitis B Vaccine (1 of 3 - 19+ 3-dose series) 1997 Cologuard 2023 Colon Cancer Screening 2023 Colonoscopy 2023 FIT 2023 Sigmoidoscopy 2023 Virtual Colonography 2023 COVID-19 Vaccine ( season) 2024 Influenza Vaccine (#1) 2025 03/28/2024 Breast Cancer Screening 11/04/2025 11/05/19 24, 09/24/2022, 09/06/2021, Additional history exists DTaP/TDaP/Td (3 - Td or Tdap) 03/28/2034 03/28/2024, 12/18/2011 Meningococcal B Vaccine Aged Out No l onger eligible based on patient's age to complete this topic Pneumococcal Vaccine 0-49 Aged Out No longer eligible based on patient's age to complete this topic Procedures Procedure Name Priority Date/Time Associated Diagnosis Comments XR ELBOW LEFT AP LATERAL AND OBLIQUES Routine 01/10/2025 2:28 PM EDT Left elbow pain XR ELBOW RIGHT AP LATERAL AND OBLIQUES Routine 10/19/2024 7:54 AM EDT Right elbow pain MM MAMMO DIGITAL HERBERT DIAGN BILAT Routine 11/05/2023 8:43 AM EDT Abnormal mammography from Last 3 Months or Most Recently Relevant to Health Maintenance Results * XR ELBOW LEFT AP LATERAL AND OBLIQUES (01/10/2025 2:28 PM EDT) Narrative Portia, Audit - 01/10/2025 2:28 PM EDT Please see physician's note from office encounter for x-ray imaging result Barrett Dee DO [facility] DI[facility]NOSTIC IMAGING ORDERA BLES Final Result * XR ELBOW RIGHT AP LATERAL AND OBLIQUES (10/19/2024 7:54 AM EDT) Narrative Portia, Audit - 10/19/2024 7:54 AM EDT Please see physician's note from office encounter for x-ray imaging result Regan Beltrán MD [facility] ORDERAB LES Final Result * MM MAMMO DIGITAL HERBERT DIAGN BILAT (11/05/2023 8:43 AM EDT) Anatomical Region Laterality Modality Breast Bilateral Mammography 11/05/2023 1:15 PM EDT Impressions 11/05/2023 1:15 PM EDT Incomplete-need additional imaging evaluation ([id number]) ~ RECOMMENDATION: Ultrasound of the right breast. This ultrasound examination will be performed on the same date and reported separately. ~ DISCLAIMER * Any patient with a palpable abnormality, unexplained by breast imaging, should be managed on clinical basis by the attending physician. * Breast imaging has a false negative rate of 15%. * The patient was notified by mail of the results of this examination. *The patient's information was entered into a reminder system with a target due date for the next mammogram, in accordance with the [employer] and the Society of Breast Imaging recommendations. Narrative 11/05/2023 1:15 PM EDT Procedure:MM MAMMO DIGITAL HERBERT DIAGN BILAT ~ Reason for exam: follow-up at short interval from prior study. R92.8-Other abnormal and inconclusive findings on diagnostic imaging of [id number] ~ MM MAMMO DIGITAL HERBERT DIAGN BILAT Bilateral CC and MLO view(s) were taken. Technologist: Octavio Reyes The breast tissue is heterogeneously dense. This may lower the sensitivity of mammography. Prior study comparison: Compared with prior studies, the most recent being 09/24/22, 09/06/21, 08/28/20. Bilateral diagnostic mammography performed with attention to nonpalpable right breast hypoechoic nodules on targeted ultrasound imaging at 8:00-9:00. No current clinical complaints. ~ Stable left breast exam. No dominant mass/architectural distortion on 3-D herbert imaging. No suspicious calcifications. Stable right breast exam with diffuse scattered asymmetric nodularity changes. Please correlate with requested targeted right breast ultrasound imaging to confirm stability of subcentimeter nodules at 7:00-8:00. ~ Procedure Note Cornell Solano DO - 11/05/2023 Procedure:MM MAMMO DIGITAL HERBERT DIAGN BILAT ~ Reason for exam: follow-up at short interval from prior study. R92.8-Other abnormal and inconclusive findings on diagnostic imaging of [id number] ~ MM MAMMO DIGITAL HERBERT DIAGN BILAT Bilateral CC and MLO view(s) were taken. Technologist: Octavio Reyes The breast tissue is heterogeneously dense. This may lower thesensitivity of mammography. Prior study comparison: Compared with prior studies, the most recentbeing 09/24/22, 09/06/21, 08/28/20. Bilateral diagnostic mammography performed with attention to nonpalpable right breast hypoechoic nodules on targeted ultrasound imaging at 8:00-9:00. No current clinical complaints. ~ Stable left breast exam. No dominant mass/architectural distortion on3-D herbert imaging. No suspicious calcifications. Stable right breast examwith diffuse scattered asymmetric nodularity changes. Please correlate with requested targeted right breast ultrasound imaging to confirm stabilityof subcentimeter nodules at 7:00-8:00. ~ IMPRESSION: Incomplete-need additional imaging evaluation ([id number]) ~ RECOMMENDATION: Ultrasound of the right breast. This ultrasound examination will be performed on the same date andreported separately. ~ DISCLAIMER * Any patient with a palpable abnormality, unexplained by breast imaging, should be managed on clinical basis by the attending physician. * Breast imaging has a false negative rate of 15%. * The patient was notified by mail of the results of this examination. *The patient's information was entered into a reminder system with atarget due date for the next mammogram, in accordance with the [employer] and the Society of Breast Imaging recommendations. us Rabia Pla MD IMG MAMMOGRAPHY O RDERABLES Final Result from Last 3 Months or Most Recently Relevant to Health Maintenance Insurance CHOICE PLUS CHOICE PL[place] [address] [place] [address] [address] [facility] [place] [place] [address] [facility] [place] [place] [address] Advance Directives For more information, please contact: [phone] * Full Code (Latest Code Status on File) Date Activated Date Inactivated Comments 07/16/2021 12:08 AM 07/18/2021 6:35 PM Care Teams Queen'S Counsel Relationship Specialty Start Date End Date Zach Craft MD [facility] [place] [phone] PCP - General Family Medicine 03/03/16 Hosea Matos MD [address] [place] [address] Physician Otolaryngology 09/30/24
--- OUTSIDE RECORDS SUMMARY | 2025-01-11 08:55 | XMS_ITS | Referral Summary ---
Author Organization [facility] Address [address] [place] [address]. [place] [address] Care Team Providers Care Epic Anesthesia Analyst Name Role Phone Unavailable Primary Care Provider Unavailabl e Social History Tobacco Use Types Packs/Day Years Used Date Smoking Tobacco: Never Assessed Comments Unknown Sex and Gender Information Value Date Recorded Sex Assigned at Not on file Legal Sex Female 7:19 PM EDT Gender Identity Not on file Sexual Orientation Not on file Plan of Treatment Not on file
--- OUTSIDE RECORDS SUMMARY | 2025-01-11 08:55 | XMS_ITS | Encounter Summary ---
Author Organization [place] [address] Care Team Providers Care Seismic Prospecting Observer Name Role Phone Zach Craft MD Primary Care Provider [phone] Hosea Matos MD Unavailable [phone] Reason for Visit * Reason Comments Medication Refill Encounter Details Date Type Department Care Team (Late st Contact Info) Description 11/25/2024 Refill [facility] [address] [place] [id number] Kimberly, Leida, DO [address] [place] [address] Medication Refill Social History Tobacco Use Types Packs/Day Years [...] Tamia Clifton RN documented in this encounter Ordered Prescriptions Prescription Sig Dispense Quantity Refills Last Filled Start Date End Date losartan (COZAAR) 50 mg Oral Tablet TAKE ONE TABLET BY MOUTH ONCE DAILY 90 Tablet 1 11/25/2024 documented in this encounter Miscellaneous Notes * Telephone Encounter - Rachael Heller CPhT - 11/25/2024 1:42 PM EDT losartan Refill request deferred to the office: Patient is taking medication differently than prescribed noted 04/04/24 documented in this encounter Plan of Treatment Upcoming Encounters Date Type Department Care Team (Late st Contact Info) Description 01/17/2025 8:15 AM EDT Office Visit [facility] [address] [place] [address] Shi Small, PT [address] [place], [place] [id number] documented as of this encounter Visit Diagnoses Not on filedocumented in this encounter Discontinued Medications Medication Sig Discontinue Reason Start Date End Da te losartan (COZAAR) 50 mg Oral Tablet TAKE ONE TABLET BY MOUTH ONCE DAILY 11/27/2023 11/25/2024 documented as of this encounter Care Teams Seismic Prospecting Observer Relationship Specialty Start Date End Date Zach Craft MD [address] [place] [address] PCP - General Family Medicine 03/03/16 Hosea Matos MD [address] [address] Physician Otolaryngology 09/30/24 documented as of this encounter
== END ==
LOC: SL 01-11 08:50
PROVIDERS: PCP Nurse Practitioner; Visit Provider Nurse Practitioner
DX: G47.33 Obstructive sleep apnea (adult) (pediatric) (principal); G47.00 Insomnia, unspecified; R06.83 Snoring
CPT/HCPCS: G0399